=== PATIENT | female | born 1950 | race Caucasian/White ===

== ENCOUNTER 2020-11-04 12:10 | Outpatient (CLI) | payer MEDICARE, MEDICAID ==
[2020-11-04 14:29] LABS: BASOPHILS % (AUTO) 0.5 %; EOSINOPHILS # (AUTO) 0.2 10^3/uL (0.0-0.7); EOSINOPHILS % (AUTO) 3.3 %; HCT - HEMATOCRIT 42.6 % (37.0-47.0); HGB - HEMOGLOBIN 13.3 g/dL (12.0-16.0); LYMPHOCYTES # (AUTO) 2.1 10^3/uL (1.5-3.5); LYMPHOCYTES % (AUTO) 33.9 %; MEAN CORPUSCULAR HEMOGLOBIN 27.9 pg (27.0-31.0); MEAN CORPUSCULAR HGB CONC 31.2 g/dL (32.0-36.0); MEAN CORPUSCULAR VOLUME 89.5 fL (81.0-99.0); MEAN PLATELET VOLUME 10.1 fL (7.9-10.8); MONOCYTES # (AUTO) 0.5 10^3/uL (0.0-1.0); MONOCYTES % (AUTO) 7.4 %; NEUTROPHILS # (AUTO) 3.3 10^3/uL (1.5-6.6); NEUTROPHILS % (AUTO) 54.6 %; PLT - PLATELET COUNT 238 10^3/uL (130-450); RED BLOOD COUNT 4.76 10^6/uL (4.20-5.40); WHITE BLOOD COUNT 6.1 x10^3/uL (4.8-10.8)
[2020-11-04 14:51] LABS: ALBUMIN 4.1 g/dL (3.2-5.5); ALBUMIN/GLOBULIN RATIO 1.3 (1.0-2.2); BILIRUBIN,TOTAL 0.8 mg/dL (0.2-1.0); CREATININE 0.7 mg/dL (0.4-1.0); POTASSIUM 4.4 mmol/L (3.5-5.0); TOTAL PROTEIN 7.2 g/dL (6.7-8.2)
[2020-11-04 15:02] LABS: THYROID STIMULATING HORMONE 1.02 uIU/mL (0.34-5.60)
[2020-11-04 15:09] LABS: FERRITIN 136.3 ng/mL (11.0-306.8)
[2020-11-04 17:21] LABS: ESTIMATED AVERAGE GLUCOSE 183 mg/dL (70-100)
== END 2020-11-04 12:11 | disposition home or self-care (01) ==
LOC: LAB.S 12:10
DX: R53.83 Other fatigue (principal)
CPT/HCPCS: 36415; 80053; 82607; 82728; 83036; 84443; 85025

== ENCOUNTER 2020-11-28 11:02 | Outpatient (CLI) | payer MEDICARE, MEDICAID ==
--- NOTE | 2020-11-28 11:29 | SLEEP CARE CONSULTATION ---
Information from patient questionnaire entered by Ruthie Esparza. I have reviewed and concur with the information entered by Ruthie Esparza. This document represents the service I personally performed and the decisions made by me, Sobia Greenfield MD, [facility]. History of Present Illness Service Date and Time: 11/28/2020 1102 Reason for Visit: New patient, Previously diagnosed sleep apnea Chief Complaint: reports: Unrefreshed sleep, Excessive daytime sleepiness, Fatigue Date of Onset: 3-4 months Time it takes to fall asleep: 15-30 minutes Snores at night: No Observed to quit breathing while asleep: No Sleeps alone due to snoring: No Reasons for waking at night: reports: Pain, Bathroom Toss, Turn, or Twitch while sleeping: No Recalls having dreams: Yes Usually gets out of bed at: 8 am Feels refreshed in the morning: No Morning headache: No Sleepy or fatigued during the day: Yes Ever fallen asleep while driving: No Takes day naps: Yes Dreams during day naps: No Prior sleep studies: Yes Year and Where: [facility] in [place], [place] Additional HPI information: I have the pleasure of seeing Ms. Cruz today regarding obstructive sleep apnea. As you know, she is a 72 year old lady who was originally diagnosed at [facility] in 2014, the result of which is not available. She had a CPAP titration study in 2017 which recommended autoCPAP set between 7 and 12 cmH 2O. The patient said she got her current device at the time. However, she quit using her CPAP about 1.5 years ago because she needed to have an N-G tube placed. She also lost 150 lbs. She wore a nasal mask. [employer] was her durable medical supplier. - Parasomnia Symptoms Ever been unable to move upon waking from sleep: No Walks in sleep: No Talks in sleep: No Ever acted out dreams in sleep: No Ever felt weak in the knees when startled or emotional: No Bothered by creepy, crawly, restless sensations in legs: No Problems with memory or concentration: No Subjective Initial Bison Sleepiness Scale score: 13 (in 2020) Past Medical History Past Medical History: reports: Hypertension, Diabetes, Arthritis, GERD Social History The patient's occupation is a RETIRED. Patient is Single and lives in [place]. Have you smoked in the past 12 months: No Alcohol use: Yes Alcohol amount and frequency: 1 drink maybe twice a year Caffeine use: Yes Caffeine amount and frequency: 10 oz 1 day a week Family History Family history of sleep disordered breathing: Yes Family Hx Sleep Apnea: Father: Snoring, Sleep apnea - Treated, Sibling: Snoring, Sleep apnea - Treated Allergies and Home Medications Drug allergies reviewed: Yes Home medication list reviewed: Yes Review of Systems Weight loss over past 5 years: 150-200 Cardiovascular: reports: high blood pressure Respiratory: denies: shortness of breath, wheeze, sputum production, chronic cough, other Gastrointestinal: reports: difficulty swallowing Urinary: reports: incontinence, frequency, urgency Neurological: denies: headaches, seizure, head trauma, disorientation, speech dysfunction, gait or balance problems, fainting or unconsciousness, other Ear/Nose/Throat: reports: other (deaf) Endocrine: denies: thyroid disease, history of goiter, sluggishness, too hot or cold, excessive thirst, increased appetite, increased urination, unexplained weakness, other Musculoskeletal: reports: joint pain, back pain, joint swelling, mobility problems Immunologic: denies: sneezing, rash, itching, allergies to food or environment, other Physical Exam Vital signs obtained and entered by: To minimize the risk of COVID-19 exposure, detailed exam was not performed. Height: 5 ft 9 in Weight: 330 lb Body Mass Index: 48.7 BMI Classification: Morbidly Obese Impression and Plan IMPRESSION: 1. Obstructive Sleep Apnea-Hypopnea Syndrome, of unknown severity. The patient has not used her CPAP for 1.5 years. Her machine is in storage. She would like to start using it again. Therefore, in order to prescribe her more supplies, I will order a home sleep apnea test (HSAT) to confirm the diagnosis and reassess its severity. Plan: 1. Schedule a home sleep apnea test (HSAT). 2. Try to lose more weight 3. Return for follow up after the test. Counseling Topics: Weight control Follow up with Sleep Care in: 1-2 months Visit Type: In Office Time Spent with Patient (minutes): 15 Provider Statement: I spent 100% of the Face to Face Visit with the patient with greater than 50% spent counseling the patient and coordination of care.
== END 2020-11-28 11:03 | disposition home or self-care (01) ==
LOC: SC 11:02
PROVIDERS: ATTEND Internal Medicine Pulmonary Disease
DX: G47.33 Obstructive sleep apnea (adult) (pediatric) (principal); E66.01 Morbid (severe) obesity due to excess calories; Z68.42 Body mass index [BMI] 45.0-49.9, adult
CPT/HCPCS: 99202; G0463; 99212

== ENCOUNTER 2020-12-07 13:07 | Outpatient (CLI) | payer MEDICARE, MEDICAID | END 2020-12-07 13:08 | disposition home or self-care (01) | LOC: SC 13:07 | PROVIDERS: ATTEND Nurse Practitioner Family | DX: G47.33 Obstructive sleep apnea (adult) (pediatric) (principal); R09.02 Hypoxemia | CPT/HCPCS: G0399 ×2; 95806 ==

== ENCOUNTER 2020-12-26 15:18 | Outpatient (CLI) | payer MEDICARE, MEDICAID ==
[2020-12-26 22:16] VITALS: BP 134/76
--- NOTE | 2020-12-26 22:16 | SLEEP CARE CONSULTATION ---
Information from patient questionnaire entered by Brandie East. I have reviewed and concur with the information entered by Brandie East. This document represents the service I personally performed and the decisions made by me, Sobia Greenfield MD, [facility]. History of Present Illness Service Date and Time: 12/26/2020 1518 Initial Vantage Sleepiness Scale score: 13 (in 2020) Additional HPI information: HPI: Ms. Cruz returned for follow up of the home sleep apnea test (HSAT) she had on 12/07/2020. The polysomnography showed moderate obstructive sleep apnea- hypopnea. The AHI was 17.1, and mark oxygen saturation, 84%. The respiratory events occurred independently of body position. The patient was informed of these findings. I explained to her the pathophysiology behind obstructive sleep apnea. We then spent quite a bit of time discussing different treatment options. For mild obstructive sleep apnea, surgery and oral appliance are alternatives to nasal CPAP therapy but in moderate or severe cases, nasal CPAP is the most effective and reliable treatment. After some discussion, she opted try CPAP again. The patient used CPAP for a few years then quit a year ago when she required an NG tube [facility].. Sleep Study - Results Type of Sleep Study: Home sleep study Prior sleep studies: Yes Allergies and Home Medications Drug allergies reviewed: Yes Home medication list reviewed: Yes Review of Systems Review of systems same as previous: Yes Physical Exam Blood Pressure: 134/76 Cuff size: regular Heart Rate: 96 O2 Saturation: 95 Height: 5 ft 9 in Weight: 332 lb Body Mass Index: 49.0 BMI Classification: Morbidly Obese Impression and Plan IMPRESSION: 1. Obstructive Sleep Apnea-Hypopnea Syndrome, moderate, presently untreated. The patient brought her [employer] AirSense in and it is set at 5 10 cmH2O. She did not bring her mask. The device came from [employer]. PLAN: 1. Restart CPAP at the original setting of 5 10 cmH2O 2. Attempt to lose weight. 3. Prescription made for supplies and sent to [facility]. 4. Return for follow up after one month of using the CPAP again. Follow up with Sleep Care in: 1-2 months Follow up recommended for: Weight management Visit Type: In Office Time Spent with Patient (minutes): 15 Provider Statement: I spent 100% of the Face to Face Visit with the patient with greater than 50% spent counseling the patient and coordination of care.
== END 2020-12-26 15:19 | disposition home or self-care (01) ==
LOC: SC 15:18
PROVIDERS: ATTEND Internal Medicine Pulmonary Disease
DX: G47.33 Obstructive sleep apnea (adult) (pediatric) (principal); E66.01 Morbid (severe) obesity due to excess calories; Z68.42 Body mass index [BMI] 45.0-49.9, adult
CPT/HCPCS: 99212; G0463

== ENCOUNTER 2020-12-26 22:09 | Inpatient (IN) | payer MEDICAID, MEDICARE ==
--- NOTE | 2020-12-26 22:36 | ED Physician Documentation ---
PD HPI ABD PAIN - Stated complaint Stated Complaint: N/V/UNABLE TO HAVE BOWEL MVMT - Chief complaint Chief Complaint: Abd Pain - History obtained from History obtained from: Patient - History of Present Illness Timing - onset: Enter time (0), Today Timing - duration: Hours Timing - details: Gradual onset, Still present Pain level max: 10 Pain level now: 10 Quality: Cramping, Sharp, Fullness/distended, Pain Location: All over / everywhere Improved by: Laying still Worsened by: Eating, Moving, Position, Palpation Associated symptoms: Nausea, Vomiting (dry heaves). No: Fever, Diarrhea, Constipation, Dysuria Similar symptoms before: Diagnosis (SBO caught in ventral hernia) Recently seen: Not recently seen - Additional information Additional information: 70-year-old female with history of morbid obesity and ventral wall hernia has had a number of bowel obstructions previously these have been usually taken care of at [facility]. She has lost maybe 200 pounds and is still working on weight loss for potential surgery for her ventral hernia. Today at about 5 PM she began develop pain this persisted through the evening and it has become intolerable. She has had 5-6 admissions for this problem previously and she has had 5-6 times where she has not come to the hospital. She has done bowel rest at home and has resolved of her symptoms. Today she attempted that and pain became intolerable and she has now come to our emergency department. She states that she had a bowel movement today and she believes she may have passed some flatus even after 5:00. She states she has had an NG tube previously which has helped out a lot and she is asking for an NG tube. Review of Systems Constitutional: denies: Fever Eyes: denies: Decreased vision Ears: denies: Ear pain Nose: denies: Congestion Throat: denies: Sore throat Cardiac: denies: Chest pain / pressure, Palpitations Respiratory: denies: Dyspnea GI: reports: Abdominal Pain, Nausea, Vomiting. denies: Constipation, Diarrhea : denies: Dysuria, Frequency Skin: denies: Rash Musculoskeletal: denies: Neck pain, Back pain, Extremity pain Neurologic: denies: Generalized weakness, Focal weakness, Numbness PD PAST MEDICAL HISTORY - Past Medical History Cardiovascular: Hypertension Respiratory: Sleep apnea GI: GERD, Other (Ventral hernia, SBO) DIETITIAN CHIEF: Other (endometrial cancer) Musculoskeletal: Other (Arthritis) - Past Surgical History General: Colonoscopy HEENT: Tonsil/Adenoidectomy - Present Medications Home Medications: Ambulatory Orders Medication Instructions Recorded Confirmed Cholecalciferol [Vitamin D3] 1 cap PO DAILY 04/15/20 07/05/20 Docusate Sodium [Dok] 1 tab PO DAILY 04/15/20 07/05/20 Furosemide [Lasix] 1 - 2 tab PO DAILY 04/15/20 07/05/20 Losartan [Cozaar] 1 tab PO DAILY 04/15/20 07/05/20 Magnesium Carb,Citrate,Oxide 400 mg PO DAILY 04/15/20 07/05/20 [Magnesium Complex] Mirabegron [Myrbetriq] 1 tab PO DAILY 04/15/20 07/05/20 [place]-3/Dha/Epa/Fish Oil [[place] 3 2 cap PO DAILY 04/15/20 07/05/20 500 Softgel] Omeprazole Magnesium 1 tab PO BID 04/15/20 07/05/20 Oxycodone HCl [Roxicodone] 2 tab PO QPM 04/15/20 07/05/20 Potassium Chloride 1 tab PO DAILY 04/15/20 07/05/20 Topiramate [Topamax] 2 tab PO DAILY 04/15/20 07/05/20 metFORMIN [Glucophage] 1 tab PO BID 04/15/20 07/05/20 oxyCODONE ER [OxyCONTIN] 1 tab PO DAILY PRN MDD 3 04/15/20 07/05/20 - Allergies Allergies/Adverse Reactions: Allergies Allergy/AdvReac Type Severity Reaction Status Date / Time Penicillins Allergy Unknown Rash Verified 12/26/20 22:25 penicillin G Allergy Rash Verified 12/26/20 22:25 gabapentin AdvReac Mild Unknown Verified 12/26/20 22:25 PD ED PE NORMAL - Vitals Vital signs reviewed: Yes (hypertensive ) - General General: Alert and oriented X 3, No acute distress, Well developed/nourished - HEENT HEENT: Atraumatic, PERRL, EOMI - Neck Neck: Supple, no meningeal sign, No bony TTP - Cardiac Cardiac: RRR, No murmur - Respiratory Respiratory: No respiratory distress, Clear bilaterally - Abdomen Abdomen: Soft, Other (morbidly obese. Well healed midline scar. To the right of the scar is an area of about 3X4cm of healing tissue from an abscess earlier this year. general tender. + BS. no garding. ) - Back Back: No CVA TTP, No spinal TTP - Derm Derm: Normal color, Warm and dry, No rash - Extremities Extremities: No deformity, No edema Results - Vitals Vitals: Vital Signs - 24 hr 12/26/20 12/26/20 12/27/20 22:22 22:37 00:28 Temperature 36.4 C L 36.6 C 36.7 C Heart Rate 81 81 78 Respiratory 17 18 21 Rate Blood Pressure 187/61 H 180/75 H 208/87 H O2 Saturation 99 100 99 12/27/20 12/27/20 12/27/20 02:00 03:17 04:04 Temperature Heart Rate 80 77 80 Respiratory 18 17 18 Rate Blood Pressure 177/76 H 218/86 H 188/70 H O2 Saturation 97 98 98 12/27/20 12/27/20 12/27/20 04:05 04:20 04:57 Temperature Heart Rate 79 Respiratory 17 18 16 Rate Blood Pressure O2 Saturation 99 12/27/20 12/27/20 05:27 06:09 Temperature 37.2 C Heart Rate 81 Respiratory 16 20 Rate Blood Pressure 161/67 H O2 Saturation 99 Oxygen O2 Source Room air - Labs Labs: Laboratory Tests 12/26/20 12/26/20 12/26/20 22:56 23:12 23:12 WBC 10.4 RBC 5.43 H Hgb 15.3 Hct 47.1 H MCV 86.7 MCH 28.2 MCHC 32.5 RDW 13.8 Plt Count 194 MPV 10.6 Neut # (Auto) 8.1 H Lymph # (Auto) 1.5 [place] # (Auto) 0.7 Eos # (Auto) 0.1 Baso # (Auto) 0.0 Absolute Nucleated RBC 0.00 Nucleated RBC % 0.0 Sodium Potassium Chloride Carbon Dioxide Anion Gap BUN Creatinine Estimated GFR (MDRD) Glucose Lactic Acid 2.1 Calcium Total Bilirubin AST ALT Alkaline Phosphatase Total Protein Albumin Globulin Albumin/Globulin Ratio Lipase Urine Color YELLOW Urine Clarity SL. CLOUDY Urine pH 6.5 Ur Specific [place] 1.025 Urine Protein TRACE Urine Glucose (UA) 250 H Urine Ketones TRACE Urine Occult Blood TRACE-INTA Urine Nitrite POSITIVE H Urine Bilirubin NEGATIVE Urine Urobilinogen 0.2 (NORMAL) Ur Leukocyte Esterase NEGATIVE Urine RBC 0-5 Urine WBC 0-3 Ur Squamous Epith Cells FEW Squamous Urine Bacteria Many H Ur Microscopic Review INDICATED Urine Culture Comments INDICATED 12/26/20 23:47 WBC RBC Hgb Hct MCV MCH MCHC RDW Plt Count MPV Neut # (Auto) Lymph # (Auto) [place] # (Auto) Eos # (Auto) Baso # (Auto) Absolute Nucleated RBC Nucleated RBC % Sodium 138 Potassium 4.0 Chloride 95 L Carbon Dioxide 30 Anion Gap 13.0 BUN 29 H Creatinine 0.9 Estimated GFR (MDRD) 62 L Glucose 232 H Lactic Acid Calcium 10.1 Total Bilirubin 0.8 AST 26 ALT 30 Alkaline Phosphatase 91 Total Protein 7.9 Albumin 4.3 Globulin 3.6 Albumin/Globulin Ratio 1.2 Lipase 25 Urine Color Urine Clarity Urine pH Ur Specific [place] Urine Protein Urine Glucose (UA) Urine Ketones Urine Occult Blood Urine Nitrite Urine Bilirubin Urine Urobilinogen Ur Leukocyte Esterase Urine RBC Urine WBC Ur Squamous Epith Cells Urine Bacteria Ur Microscopic Review Urine Culture Comments - Rads (name of study) CT ab/pel with Radiology: Prelim report reviewed (Impression: Low to medium grade small bowel obstruction associated with a large ventral hernia which contains a long segment of mid to distal small bowel.), Discussed with rads (segment of small bowel out in the hernia is dilated the rest is decompressed. dilated small bowel within the abdomen. ), EMP read indepedently, See rad report PD MEDICAL DECISION MAKING - ED course Complexity details: reviewed results, re-evaluated patient, considered di fferential, d/w patient ED course: Morbidly obese 70-year-old female with a history of recurrent small bowel obstruction has a large ventral hernia associated with the small bowel obstruction. She does have evidence of obstruction on her CT scan today and there was a delay in reading her initial report but following the conversation with the radiologist I did attempt to reduce a portion of the hernia containing a dilated loop of bowel. With continued pressure I was able to reduce some segment of mass without relief of symptoms to the patient. She has been administered saline and intravenous Dilaudid and Zofran with some improvement in her pain. She has had prior obstructions requiring 4 to [address] Pichardo is consulted in the case and agrees that treatment for SBO here is appropriate and surgical intervention is not anticipated and if required transfer would be in order. Departure - Departure Disposition: [facility] DC/Xfer Clinical Impression: Small bowel obstruction
[2020-12-26] MEDS ORDERED: ONDANSETRON 4 MG/2 ML VIAL IVP STA (22:49)
[2020-12-26] MEDS ORDERED: HYDROmorphone 1 MG/ML CARPUJECT IVP STA (22:49)
[2020-12-26] MEDS ORDERED: IOVERSOL 320 100 ML VIAL IVP ONE (23:11)
[2020-12-26 23:26] LABS: BASOPHILS % (AUTO) 0.3 %; EOSINOPHILS # (AUTO) 0.1 10^3/uL (0.0-0.7); EOSINOPHILS % (AUTO) 0.8 %; HCT - HEMATOCRIT 47.1 % (37.0-47.0); HGB - HEMOGLOBIN 15.3 g/dL (12.0-16.0); LYMPHOCYTES # (AUTO) 1.5 10^3/uL (1.5-3.5); LYMPHOCYTES % (AUTO) 14.5 %; MEAN CORPUSCULAR HEMOGLOBIN 28.2 pg (27.0-31.0); MEAN CORPUSCULAR HGB CONC 32.5 g/dL (32.0-36.0); MEAN CORPUSCULAR VOLUME 86.7 fL (81.0-99.0); MEAN PLATELET VOLUME 10.6 fL (7.9-10.8); MONOCYTES # (AUTO) 0.7 10^3/uL (0.0-1.0); MONOCYTES % (AUTO) 6.4 %; NEUTROPHILS # (AUTO) 8.1 10^3/uL (1.5-6.6); NEUTROPHILS % (AUTO) 77.8 %; PLT - PLATELET COUNT 194 10^3/uL (130-450); RED BLOOD COUNT 5.43 10^6/uL (4.20-5.40); RED CELL DISTRIBUTION WIDTH 13.8 % (12.0-15.0); WHITE BLOOD COUNT 10.4 x10^3/uL (4.8-10.8)
[2020-12-26 23:29] LABS: BILIRUBIN,URINE NEGATIVE (NEGATIVE); GLUCOSE, URINE (UA) 250 mg/dL (NEGATIVE); KETONES,URINE (UA) TRACE mg/dL (NEGATIVE); LEUKOCYTE ESTERASE, URINE NEGATIVE (NEGATIVE); NITRITE,URINE POSITIVE (NEGATIVE); OCCULT BLOOD,URINE TRACE-INTA (NEGATIVE); PH,URINE 6.5 PH (5.0-7.5); PROTEIN,URINE TRACE mg/dL (NEGATIVE); UROBILINOGEN,URINE 0.2 (NORMAL) E.U./dL (NORMAL)
[2020-12-26 23:32] LABS: CLARITY,URINE SL. CLOUDY (CLEAR)
[2020-12-26 23:35] LABS: BACTERIA,URINE Many /HPF (None Seen); RBC,URINE 0-5 /HPF (0-5); SQUAMOUS EPITHELIAL CELL,UR FEW Squamous (<= Few); WBC,URINE 0-3 /HPF (0-5)
[2020-12-27 00:06] LABS: ALBUMIN 4.3 g/dL (3.2-5.5); ALBUMIN/GLOBULIN RATIO 1.2 (1.0-2.2); BILIRUBIN,TOTAL 0.8 mg/dL (0.2-1.0); CALCIUM 10.1 mg/dL (8.5-10.3); CREATININE 0.9 mg/dL (0.4-1.0); TOTAL PROTEIN 7.9 g/dL (6.7-8.2)
[2020-12-27] MEDS ORDERED: IOVERSOL 320 100 ML VIAL IVP ONE (00:58)
[2020-12-27] MEDS ORDERED: HYDROmorphone 1 MG/ML CARPUJECT IVP STA ×2 (01:14→05:46)
[2020-12-27] MEDS ORDERED: ONDANSETRON 4 MG/2 ML VIAL IVP STA (01:14)
[2020-12-27] MEDS ORDERED: SODIUM CHLORIDE 0.9% 1,000 ML IV STA ×2 (04:15→05:46)
[2020-12-27] MEDS ORDERED: PANTOPRAZOLE 40 MG VIAL IVP STA (05:49)
[2020-12-27] MEDS ORDERED: SODIUM CHLORIDE FLUSH 0.9% 10 ML SYRINGE IVP PRN (06:50)
--- NOTE | 2020-12-27 07:02 | HISTORY & PHYSICAL EXAMINATION ---
Chief Complaint - Chief Complaint Chief Complaint: abd pain, nausea History of Present Illness - [facility] - History Obtained From Records Reviewed: yes History obtained from: patient - History of Present Illness HPI Comment/Other: Patient is a 70-year-old morbidly obese female who presented to the ED with comp laint of abdominal pain which started around 5 PM yesterday 12/26/2020. She has significant ventral hernia and as a result has had multiple episodes of bowel obstruction. She sees a surgeon by name Joanne Sullivan at [facility]. There is plan for surgery in the future on the condition that she loses some weight. She is currently about 350 pounds and was up to 500 pounds in the past. At bedside she rates her pain 7 out of 10. She complains of nausea and dry heaves as well. She denies chest pain, difficulty in breathing, chills or fever. Work-up in the ED included a CT of the abdomen pelvis which showed the ventral hernia and low to medium grade bowel obstruction. She is being admitted for further treatment to include NG tube placement, pain management. History - Past Medical History Cardiovascular: reports: Hypertension Respiratory: reports: Sleep apnea GI: reports: GERD, Other (Ventral hernia, SBO) REHABILITATION AIDE/SCHEDULER: reports: Other (endometrial cancer) Musculoskeletal: reports: Osteoarthritis, Other (Arthritis) Other Past Medical History: Obesity, ventral hernia, Hx of uterine cancer, - Past Surgical History General: reports: Colonoscopy Ortho: reports: Shoulder arthroplasty (right) /REHABILITATION AIDE/SCHEDULER: reports: Hysterectomy HEENT: reports: Tonsil/Adenoidectomy Other past surgical history: mastoid surgery, ear surgery during childhood, 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 Mother had history of breast cancer, uterine cancer and alcohol abuse. Father had history of heart disease, diabetes mellitus, obesity and alcohol abuse. There is extensive history of hypertension in her family. Her grandparents have history of CVA and colon cancer. Social History Notes: She does not consume alcohol, tobacco products or recreational substances. She is independent of activities of daily living and gets around using a walker - POLST Patient has POLST: No POLST Status: Full Code Meds/Allgy - Home Medications Home Medications: Ambulatory Orders Medication Instructions Recorded Confirmed Cholecalciferol [Vitamin D3] 1 cap PO DAILY 04/15/20 12/27/20 Docusate Sodium [Dok] 1 tab PO DAILY 04/15/20 12/27/20 Furosemide [Lasix] 1 - 2 tab PO DAILY 04/15/20 12/27/20 Losartan [Cozaar] 1 tab PO DAILY 04/15/20 12/27/20 Magnesium Carb,Citrate,Oxide 400 mg PO DAILY 04/15/20 12/27/20 [Magnesium Complex] Mirabegron [Myrbetriq] 1 tab PO DAILY 04/15/20 12/27/20 [place]-3/Dha/Epa/Fish Oil [[place] 3 2 cap PO DAILY 04/15/20 12/27/20 500 Softgel] Omeprazole Magnesium 1 tab PO BID 04/15/20 12/27/20 Potassium Chloride 1 tab PO DAILY 04/15/20 12/27/20 Topiramate [Topamax] 2 tab PO DAILY 04/15/20 12/27/20 metFORMIN [Glucophage] 1 tab PO BID 04/15/20 12/27/20 oxyCODONE ER [OxyCONTIN] 1 tab PO DAILY PRN MDD 3 04/15/20 12/27/20 - Allergies Allergies/Adverse Reactions: Allergies Allergy/AdvReac Type Severity Reaction Status Date / Time Penicillins Allergy Unknown Rash Verified 12/26/20 22:25 penicillin G Allergy Rash Verified 12/26/20 22:25 gabapentin AdvReac Mild Unknown Verified 12/26/20 22:25 Review of Systems - Constitutional Constitutional: reports: Poor appetite. denies: Fatigue, Fever - Eyes Eyes: denies: Pain, Dipolpia - Ears, Nose & Throat Ears, Nose & Throat: reports: Hearing loss - Cardiovascular Cariovascular: denies: Chest pain, Edema, Lightheadedness, Syncope - Respiratory Respiratory: denies: Cough, Wheezing, Snoring, SOB at rest - Gastrointestinal Gastrointestinal: reports: Abdominal pain, Abdominal distention, Nausea, Reflux/heartburn. denies: Diarrhea - Genitourinary Genitourinary: denies: Dysuria, Frequency, Urgency, Hematuria, Incontinence - Musculoskeletal Musculoskeletal: reports: Joint pain (knees). denies: Muscle pain, Back pain, Muscle aches, Stiffness - Integumentary Integumentary: denies: Rash, Pruritis, Lesions, Dryness - Neurological Neurological: denies: Focal weakness, Headache - Psychiatric Psychiatric: denies: Depression, Anxiety - Endocrine Endocrine: denies: Polyuria, Polydypsia - Hematologic/Lymphatic Hematologic/Lymphatic: denies: Anemia, Bruising, Petechiae Prior Level of Functionality: She is independent of activities of daily living and gets around using a walker Exam - Vital Signs Vital Signs: Vital Signs x48h Temp Pulse Resp BP Pulse Ox 12/27/20 06:09 37.2 C 81 20 161/67 H 99 12/27/20 05:27 16 12/27/20 04:57 16 12/27/20 04:20 18 12/27/20 04:05 79 17 99 12/27/20 04:04 80 18 188/70 H 98 12/27/20 03:17 77 17 218/86 H 98 12/27/20 02:00 80 18 177/76 H 97 12/27/20 00:28 36.7 C 78 21 208/87 H 99 - Physical Exam General Appearance: positive: Alert, Moderate distress Eyes Bilateral: positive: PERRL ENT: positive: No signs of dehydration Neck: positive: No JVD, Trachea midline Respiratory: positive: Chest non-tender, No respiratory distress, Breath sounds nml. negative: Wheezes, Rales, Rhonchi Cardiovascular: positive: Regular rate & rhythm, No murmur Abdomen: positive: Tenderness, Abnml bowel sounds (diminished). negative: Guarding, Rebound Back: positive: Nml inspection Skin: positive: No rash, Warm, Dry Extremities: positive: Non-tender, Nml appearance, No pedal edema Neurologic/Psychiatric: positive: Oriented x3, Mood/affect nml Conclusion/Plan - Problem List (1) Small bowel obstruction Conclusion/Plan: Patient has had multiple episodes of bowel obstruction. She has a ventral hernia and needs to have surgery in the future. CT scan of the abdomen pelvis showed low to medium bowel obstruction with bowel and ventral hernia. Reduction was attempted by the ED physician She sees Dr. Joanne Sullivan a surgeon at [facility]. The requirement is for her to lose more weight before surgery can be done. NG tube is in place and connected to suction. Pain management with Dilaudid. IV hydration with normal saline. Protonix ordered. Zofran for nausea. Anticipating resolution. However if patient's symptoms worsen she would need transfer for higher level of care. (2) Ventral hernia Conclusion/Plan: She sees Dr. Joanne Sullivan a surgeon at [facility]. She will undergo surgery in the future once she has lost sufficient weight. She is to weigh 500 pounds and currently weighs 350 pounds. (3) Morbidly obese Conclusion/Plan: Patient working on losing weight. She used to weigh 500 pounds and is down to 350 pounds currently. (4) Diabetes mellitus Conclusion/Plan: Accu-Cheks before every meal and at bedtime. Sliding scale insulin. Qualifiers: Diabetes mellitus type: type 2 (5) Hypertension Conclusion/Plan: Hydralazine 10 mg IV every 6 hours as needed for systolic blood pressure greater than 160. (6) GERD (gastroesophageal reflux disease) Conclusion/Plan: Protonix 40 mg IV daily ordered. (7) NGHIA (obstructive sleep apnea) Conclusion/Plan: Patient is waiting for her CPAP to be delivered. - Lab Results Fish Bones: 12/26/20 23:12 12/26/20 23:47 Core Measures - Anticipated LOS I expect patient to be DC'd or transferred within 96 hours.: Yes - DVT/VTE - Prophylaxis VTE/DVT Device ordered at admit?: Yes VTE/DVT Prophylaxis med ordered at admit?: Yes
[2020-12-27 07:25] LABS: B. PARAPERTUSSIS- RESP PCR PAN NOT DETECTED; B. PERTUSSIS- RESP PCR PANEL NOT DETECTED; C. PNEUMONIAE- RESP PCR PANEL NOT DETECTED; CORONAVIRUS 229E-RESP PCR NOT DETECTED; CORONAVIRUS HKU1-RESP PCR NOT DETECTED; CORONAVIRUS NL63-RESP PCR NOT DETECTED; CORONAVIRUS OC43-RESP PCR NOT DETECTED; HUMAN METAPNEUMOVIRUS NOT DETECTED; INFLUENZA A- RESP PCR PANEL NOT DETECTED; INFLUENZA B - RESP PCR PANEL NOT DETECTED; M. PNEUMONIAE- RESP PCR PANEL NOT DETECTED; PARAINFLUENZA VIRUS 1 NOT DETECTED; PARAINFLUENZA VIRUS 2 NOT DETECTED; PARAINFLUENZA VIRUS 3 NOT DETECTED; PARAINFLUENZA VIRUS 4 NOT DETECTED; RHINOVIRUS/ENTEROVIRUS NOT DETECTED; RSV- RESP PCR PANEL NOT DETECTED; SARS-CoV-2 -RESP PCR PANEL NOT DETECTED
[2020-12-27] MEDS ORDERED: hydrALAZINE INJ 20 MG/ML VIAL IVP PRN (07:47)
--- NOTE | 2020-12-27 08:11 | CT Report ---
PROCEDURE: ABDOMEN/PELVIS W INDICATIONS: Abdominal pain and distention, concern for obstruction TECHNIQUE: After the administration of intravenous contrast, 5 mm thick sections acquired from the diaphragms to the symphysis. 5 mm thick coronal and sagittal reformats were acquired. For radiation dose reducti on, the following was used: automated exposure control, adjustment of mA and/or kV according to heydi ent size. COMPARISON: None. FINDINGS: There is a large ventral hernia containing a long segment of the mid and distal small bowel. There is dilatation of the bowel proximal to the segment containing within the hernia sac with an apparent tr ansition point near the fascial defect of the (for example series 5 image 61). Small bowel distal to the hernia is completely decompressed. The colon is relatively decompressed also. No free fluid or fr ee air. Unremarkable CT appearance of the liver, spleen, gallbladder, and adrenal glands. Mild fatty atrophy of the pancreas. No pancreatic ductal dilatation. Inflammatory changes. Mild relatively symmetric perinephric fat stranding. No hydroureteronephrosis o r urinary tract calculus identified. Nonaneurysmal abdominal aorta. No threshold enlarged intra-abdom inal or retroperitoneal lymph node. No free pelvic fluid or pelvic mass. Urinary bladder within wilder l limits. No tarsal tunnel or inguinal lymph nodes. Advanced degenerative changes of the sacroiliac j oints with air in the joint space and sclerosis adjacent to the joint. Advanced moderate degenerative changes in the lumbar spine. Included lung bases are clear. IMPRESSION: Low to moderate grade small bowel obstruction associated with a large ventral hernia con taining a long segment of the mid to distal small bowel. No significant change from preliminary repor t. Reviewed by: Mac Curiel MD on 12/27/2020 8:10 AM PDT Approved by: Mac Curiel MD on 12/27/2020 8:10 AM PDT Station ID: [id number]
[2020-12-27] MEDS: SODIUM CHLORIDE 0.9% 1,000 ML IV SCH ×3 (08:38→22:12)
[2020-12-27] MEDS: SODIUM CHLORIDE FLUSH 0.9% 10 ML SYRINGE IVP SCH ×2 (08:38→17:12)
[2020-12-27] MEDS: HEPARIN 5,000 UNIT/ML VIAL SUBQ SCH ×2 (08:39→20:35)
[2020-12-27] MEDS: INSULIN REGULAR HUMAN 300 UNIT/3 ML VIAL SUBQ SCH ×3 (11:13→23:49)
[2020-12-27] MEDS: ONDANSETRON 4 MG/2 ML VIAL IVP PRN (17:55)
[2020-12-27] MEDS: HYDROmorphone 0.5 MG/0.5 ML SYRINGE IVP PRN ×2 (17:56→23:32)
[2020-12-27] MEDS: PANTOPRAZOLE 40 MG VIAL IVP SCH (18:17)
--- NOTE | 2020-12-27 18:25 | XRAY Report ---
PROCEDURE: Chest for Line Placement INDICATIONS: NGT PLACEMENT TECHNIQUE: One view of the chest was acquired. COMPARISON: None FINDINGS: Surgical changes and devices: A gastric tube is present. The tip is now visible on these images, yet the tube is believed to proceed level of the diaphragm. Right shoulder arthroplasty hardware is seen. Lungs and pleura: No pleural effusions or pneumothorax. Lungs are clear. Mediastinum: Mediastinal contours appear normal. Heart size is normal. Bones and chest wall: No suspicious bony lesions. Age-appropriate degenerative changes are seen. O verlying soft tissues appear unremarkable. IMPRESSION: The tip of the gastric tube is not seen on these images, yet it is believed to be below the level of the diaphragm. Please consider short-term follow-up for further evaluation. Reviewed by: Pierce Ozuna MD on 12/27/2020 5:24 PM [place] Approved by: Pierce Ozuna MD on 12/27/2020 5:24 PM [place] Station ID: [id number]
--- NOTE | 2020-12-27 19:28 | XRAY Report ---
PROCEDURE: Abdomen 1 View X-Ray INDICATIONS: can't see NG TECHNIQUE: 1 view of the abdomen were acquired. COMPARISON: Chest x-ray 12/27/2020 FINDINGS: Surgical changes and devices: Nasogastric tube is at the gastroesophageal junction. Bowel: No pneumoperitoneum. The bowel gas pattern is normal. Soft tissues: No masses; visualized solid organ contours appear normal in size. No suspicious abdom inal calcifications. Bones: No suspicious bony abnormalities. IMPRESSION: Nasogastric tube is at the gastroesophageal junction. Forward advancement by at least 10 cm is recommended. Reviewed by: Michelle Sandoval MD on 12/27/2020 7:26 PM PDT Approved by: Michelle Sandoval MD on 12/27/2020 7:26 PM PDT Station ID: [id number]
--- NOTE | 2020-12-27 22:45 | XRAY Report ---
PROCEDURE: Abdomen 1 View X-Ray INDICATIONS: NG tube placement. TECHNIQUE: 1 view of the abdomen were acquired. COMPARISON: 12/27/2020 FINDINGS: Surgical changes and devices: Interval placement of a nasogastric tube. The tip is in the stomach, ho wever the side-port is likely within the distal esophagus. Recommend advancing the nasogastric tube 8 cm. Bowel: No pneumoperitoneum. The bowel gas pattern is normal. Bones: No suspicious bony abnormalities. IMPRESSION: Recommend advancing nasogastric tube 8 cm. Reviewed by: Marek Jeffries on 12/27/2020 10:44 PM PDT Approved by: Marek Jeffries on 12/27/2020 10:44 PM PDT Station ID: [id number]
--- NOTE | 2020-12-28 01:04 | XRAY Report ---
PROCEDURE: Abdomen 1 View X-Ray INDICATIONS: NG tube advancement. TECHNIQUE: 1 view of the abdomen were acquired. COMPARISON: 12/28/2019 FINDINGS: Surgical changes and devices: None. Bowel: No pneumoperitoneum. The bowel gas pattern is normal. Soft tissues: No masses; visualized solid organ contours appear normal in size. No suspicious abdom inal calcifications. Bones: No suspicious bony abnormalities. IMPRESSION: Nasogastric tube is well-positioned. Reviewed by: Marek Jeffries on 12/28/2020 1:02 AM PDT Approved by: Marek Jeffries on 12/28/2020 1:02 AM PDT Station ID: [id number]
[2020-12-28] MEDS: ACETAMINOPHEN 325 MG TABLET PO SCH ×4 (03:06→18:20)
[2020-12-28] MEDS: SODIUM CHLORIDE FLUSH 0.9% 10 ML SYRINGE IVP SCH ×3 (03:06→16:21)
[2020-12-28] MEDS: HYDROmorphone 0.5 MG/0.5 ML SYRINGE IVP PRN ×3 (03:14→20:59)
[2020-12-28 05:43] LABS: BASOPHILS % (AUTO) 0.4 %; EOSINOPHILS # (AUTO) 0.3 10^3/uL (0.0-0.7); EOSINOPHILS % (AUTO) 3.3 %; HCT - HEMATOCRIT 41.4 % (37.0-47.0); HGB - HEMOGLOBIN 13.1 g/dL (12.0-16.0); LYMPHOCYTES # (AUTO) 2.8 10^3/uL (1.5-3.5); LYMPHOCYTES % (AUTO) 36.2 %; MEAN CORPUSCULAR HEMOGLOBIN 28.2 pg (27.0-31.0); MEAN CORPUSCULAR HGB CONC 31.6 g/dL (32.0-36.0); MEAN CORPUSCULAR VOLUME 89.2 fL (81.0-99.0); MEAN PLATELET VOLUME 10.9 fL (7.9-10.8); MONOCYTES # (AUTO) 0.8 10^3/uL (0.0-1.0); MONOCYTES % (AUTO) 10.2 %; NEUTROPHILS # (AUTO) 3.8 10^3/uL (1.5-6.6); NEUTROPHILS % (AUTO) 49.8 %; PLT - PLATELET COUNT 164 10^3/uL (130-450); RED BLOOD COUNT 4.64 10^6/uL (4.20-5.40); RED CELL DISTRIBUTION WIDTH 14.1 % (12.0-15.0); WHITE BLOOD COUNT 7.7 x10^3/uL (4.8-10.8)
[2020-12-28 05:49] LABS: CALCIUM 8.7 mg/dL (8.5-10.3); CREATININE 0.7 mg/dL (0.4-1.0); POTASSIUM 3.8 mmol/L (3.5-5.0)
[2020-12-28] MEDS: INSULIN REGULAR HUMAN 300 UNIT/3 ML VIAL SUBQ SCH ×3 (06:22→18:20)
[2020-12-28] MEDS: PANTOPRAZOLE 40 MG VIAL IVP SCH ×2 (06:23→14:16)
[2020-12-28] MEDS ORDERED: PANTOPRAZOLE 40 MG VIAL IVP SCH (07:00)
[2020-12-28] MEDS: HEPARIN 5,000 UNIT/ML VIAL SUBQ SCH ×2 (08:15→21:05)
--- NOTE | 2020-12-28 10:36 | PROVIDER PROGRESS NOTE ---
Subjective - Prog Note Date Prog Note Date: 12/28/20 Prog Note Time: 10:35 - Subjective Pt reports feeling: Improved Subjective: Patient awake, alert, and sitting in recliner chair upon entering the room. She was able to sleep overnight. She mentions her abdominal pain has resolved and she is passing gas. Additionally, she feels that the "mass" that on her abdomen has resolved. She is currently not nauseas. She does have some diffuse pain and aches, but does not feel are related to her current condition. She wants to get a repeat CT scan because she feels that the condition is resolving. She also is hesitant about a PIC line unless it is just to receive fluid. At this time she has no additional. Current Medications - Current Medications Current Medications: Active Medications Acetaminophen (Acetaminophen 325 Mg Tablet) 650 mg PO Q6HR [facility] Last Admin: 12/28/20 06:14 Dose: Not Given Documented by: Heparin Sodium (Porcine) (Heparin 5,000 Unit/Ml Vial) 5,000 unit SUBQ BID [facility] Last Admin: 12/28/20 08:15 Dose: 5,000 unit Documented by: Hydralazine HCl (Hydralazine Inj 20 Mg/Ml Vial) 10 mg IVP Q6H PRN PRN Reason: PER PHYSICIAN ORDER Hydromorphone HCl (Hydromorphone 0.5 Mg/0.5 Ml Syringe) 1 mg IVP Q3H PRN PRN Reason: Pain 8 to 10 Last Admin: 12/28/20 03:14 Dose: 1 mg Documented by: Sodium Chloride (Normal Saline 0.9%) 1,000 mls @ 125 mls/hr IV .Q8H [facility] Last Infusion: 12/28/20 05:24 Dose: 0 mls/hr Documented by: Insulin Human Regular (Insulin Regular Human 300 Unit/3 Ml Vial) 1 - 5 unit SUBQ Q6HR [facility]; Protocol Last Admin: 12/28/20 06:22 Dose: Not Given Documented by: Ondansetron HCl (Ondansetron 4 Mg/2 Ml Vial) 4 mg IVP Q6HR PRN PRN Reason: Nausea / Vomiting Last Admin: 12/27/20 17:55 Dose: 4 mg Documented by: Pantoprazole Sodium (Pantoprazole 40 Mg Vial) 40 mg IVP QDAC [facility] Last Admin: 12/28/20 06:23 Dose: Not Given Documented by: Promethazine HCl (Promethazine 25 Mg/1 Ml Vial) 25 mg IM Q6HR PRN PRN Reason: Nausea / Vomiting Sodium Chloride (Sodium Chloride Flush 0.9% 10 Ml Syringe) 10 ml IVP PRN PRN PRN Reason: NEEDED PER PROVIDER ORDERS Sodium Chloride (Sodium Chloride Flush 0.9% 10 Ml Syringe) 10 ml IVP 0100,0900,1700 RICK Last Admin: 12/28/20 08:17 Dose: Not Given Documented by: Furosemide [Lasix] 1 - 2 tab PO DAILY 04/15/20 Losartan [Cozaar] 50 mg PO DAILY 04/15/20 Magnesium Carb,Citrate,Oxide [Magnesium Complex] 400 mg PO DAILY 04/15/20 Mirabegron [Myrbetriq] 50 mg PO DAILY 04/15/20 [place]-3/Dha/Epa/Fish Oil [[place] 3 500 Softgel] 2 cap PO DAILY 04/15/20 Omeprazole Magnesium 1 tab PO BID 04/15/20 Potassium Chloride 1 tab PO DAILY 04/15/20 metFORMIN [Glucophage] 1,000 mg PO BID 04/15/20 Cholecalciferol [Vitamin D3] 25 mcg PO DAILY 12/27/20 Duloxetine HCl [Cymbalta] 60 mg PO DAILY 12/27/20 Lactobacillus Acidophilus [Acidophilus Lactobacilli] 1 cap PO DAILY 12/27/20 Melatonin 10 mg PO QPM 12/27/20 Multivitamin 1 tab PO DAILY 12/27/20 Oxycodone HCl 10 - 30 mg PO BID PRN 12/27/20 Ubidecarenone [Co Q-10] 1 cap PO DAILY 12/27/20 Vitamin A 1 cap PO DAILY 12/27/20 Vitamin B Complex 1 tab PO DAILY 12/27/20 Objective - Vital Signs/Intake & Output Vital Signs: Vital Signs x48h Temp Pulse Pulse Resp BP Pulse Ox 12/28/20 07:37 36.9 C 70 16 138/54 H 96 12/28/20 05:20 36.5 C 77 16 126/70 96 Intake & Output: Intake & Output 12/25/20 12/26/20 12/27/20 12/28/20 23:59 23:59 23:59 23:59 Intake Total 2380.000 900 Output Total 100 150 Balance 2280.000 750 - Objective General Appearance: positive: No acute distress, Alert, Other (Moribdly obese) Eyes Bilateral: positive: PERRL, EOMI Neck: positive: No JVD, Trachea midline. negative: Lymphadenopathy (R), Lymphadenopathy (L) Respiratory: positive: Chest non-tender, No respiratory distress, Breath sounds nml. negative: Wheezes, Rales, Rhonchi Cardiovascular: positive: Regular rate & rhythm, No murmur, No gallop Peripheral Pulses: 1+ Dorsalis pedis (R), 1+ Dorsalis pedis (L), 2+ Radial (R), 2+ Radial (L) Abdomen: positive: Tenderness (Tenderness upper right primarily. But minor tenderness.), Abnml bowel sounds (slightly hypoactive, but still present.). negative: Guarding, Rebound Skin: positive: Warm, Dry Extremities: positive: Nml appearance, No pedal edema. negative: Calf tendernes s Neurologic/Psychiatric: positive: Oriented x3, CN's nml (2-12), Motor nml, Sensation nml, Mood/affect nml - Lab Results Fish Bones: 12/28/20 05:13 12/28/20 05:13 Other Labs: Lab Results x24hrs 12/28/20 12/28/20 12/28/20 Range/Units 06:15 05:13 05:13 WBC 7.7 (4.8-10.8) x10^3/uL RBC 4.64 (4.20-5.40) 10^6/uL Hgb 13.1 (12.0-16.0) g/dL Hct 41.4 (37.0-47.0) % MCV 89.2 (81.0-99.0) fL MCH 28.2 (27.0-31.0) pg MCHC 31.6 L (32.0-36.0) g/dL RDW 14.1 (12.0-15.0) % Plt Count 164 (130-450) 10^3/uL MPV 10.9 H (7.9-10.8) fL Neut # (Auto) 3.8 (1.5-6.6) 10^3/uL Lymph # (Auto) 2.8 (1.5-3.5) 10^3/uL [place] # (Auto) 0.8 (0.0-1.0) 10^3/uL Eos # (Auto) 0.3 (0.0-0.7) 10^3/uL Baso # (Auto) 0.0 (0.0-0.1) 10^3/uL Absolute Nucleated RBC 0.00 x10^3/uL Nucleated RBC % 0.0 /100WBC Sodium 140 (135-145) mmol/L Potassium 3.8 (3.5-5.0) mmol/L Chloride 104 (101-111) mmol/L Carbon Dioxide 24 (21-32) mmol/L Anion Gap 12.0 (6-13) BUN 20 (6-20) mg/dL Creatinine 0.7 (0.4-1.0) mg/dL Estimated GFR (MDRD) 83 L (>89) Glucose 151 H (70-100) mg/dL POC Whole Bld Glucose 136 H (70 - 100) mg/dL Calcium 8.7 (8.5-10.3) mg/dL 12/27/20 12/27/20 12/27/20 Range/Units 23:42 16:48 11:08 WBC (4.8-10.8) x10^3/uL RBC (4.20-5.40) 10^6/uL Hgb (12.0-16.0) g/dL Hct (37.0-47.0) % MCV (81.0-99.0) fL MCH (27.0-31.0) pg MCHC (32.0-36.0) g/dL RDW (12.0-15.0) % Plt Count (130-450) 10^3/uL MPV (7.9-10.8) fL Neut # (Auto) (1.5-6.6) 10^3/uL Lymph # (Auto) (1.5-3.5) 10^3/uL [place] # (Auto) (0.0-1.0) 10^3/uL Eos # (Auto) (0.0-0.7) 10^3/uL Baso # (Auto) (0.0-0.1) 10^3/uL Absolute Nucleated RBC x10^3/uL Nucleated RBC % /100WBC Sodium (135-145) mmol/L Potassium (3.5-5.0) mmol/L Chloride (101-111) mmol/L Carbon Dioxide (21-32) mmol/L Anion Gap (6-13) BUN (6-20) mg/dL Creatinine (0.4-1.0) mg/dL Estimated GFR (MDRD) (>89) Glucose (70-100) mg/dL POC Whole Bld Glucose 101 H 136 H 180 H (70 - 100) mg/dL Calcium (8.5-10.3) mg/dL ABX Reporting Has patient been on IV antibiotics over the past 48 hours?: No Assessment/Plan - Problem List (1) Small bowel obstruction Impression: (1) Small bowel obstruction Conclusion/Plan: Patient has had multiple episodes of bowel obstruction. She has a ventral hernia and needs to have surgery in the future. CT scan of the abdomen pelvis showed low to medium bowel obstruction with bowel and ventral hernia. Reduction was attempted by the ED physician She sees Dr. Joanne Sullivan a surgeon at [facility]. The requirement is for her to lose more weight before surgery can be done. NG tube is in place and connected to suction. Pain management with Dilaudid. IV hydration with normal saline. Protonix ordered. Zofran for nausea. Due to the patient feeling much better, passing gas, and resolution of pain ordering a follow up image is indicated to reasses. She wants to go home, but feels that she is still dehydrated and may want the PIC line for fluids. Given the fact that she is feeling better and that she is passing gas. I believe that it is reasonable to order a KUB and reassess. Hopefully the obstruction has resolved and she can be discharged later. Given that she does not currently have a PIC line, I will order some Sublingual Odansetron for her in the meantime. (2) Ventral hernia Conclusion/Plan: She sees Dr. Joanne Sullivan a surgeon at [facility]. She will undergo surgery in the future once she has lost sufficient weight. She is to weigh 500 pounds and currently weighs 350 pounds. No change. 12/28 (3) Morbidly obese Conclusion/Plan: Patient working on losing weight. She used to weigh 500 pounds and is down to 350 pounds currently. No change 12/28 (4) Diabetes mellitus Conclusion/Plan: Accu-Cheks before every meal and at bedtime. Sliding scale insulin. Qualifiers: Diabetes mellitus type: type 2 No change 12/28 (5) Hypertension Conclusion/Plan: Hydralazine 10 mg IV every 6 hours as needed for systolic blood pressure greater than 160. Stable. No change 12/28 (6) GERD (gastroesophageal reflux disease) Conclusion/Plan: Protonix 40 mg IV daily ordered. No change 12/28 (7) NGHIA (obstructive sleep apnea) Conclusion/Plan: Patient is waiting for her CPAP to be delivered. No change. 12/28
[2020-12-28] MEDS: SODIUM CHLORIDE 0.9% 1,000 ML IV SCH ×3 (12:07→21:08)
[2020-12-28] MEDS ORDERED: ONDANSETRON ODT 4 MG TABLET TL PRN (13:01)
--- NOTE | 2020-12-28 14:10 | ANESTHESIA PROCEDURE NOTE ---
Anesth Central Line Template - Central Line Central Line Preparation: Consent Obtained Central line location: Left Basilic Central line type: PICC Double Lumen Central line catheter tip site resides: Superior vena cava (SVC) Central line aftercare: Secured, Placement confirmed, No pneumothorax, No complications, Bundle checklist complete, Pt tolerated well
[2020-12-28] MEDS: ONDANSETRON 4 MG/2 ML VIAL IVP PRN ×2 (14:11→21:11)
--- NOTE | 2020-12-28 14:52 | XRAY Report ---
PROCEDURE: Chest for Line Placement INDICATIONS: For line placement TECHNIQUE: One view of the chest was acquired. COMPARISON: December 27, 2020 FINDINGS: SUPPORT DEVICES: Left approach PICC line with tip overlying the low SVC region. An enteric tube is noted but not well delineated distally. LUNG/PLEURA: No focal consolidation or pulmonary edema. No pleural effusion or space-occupying pneumo thorax. MEDIASTINUM: The cardiomediastinal silhouette is within normal limits. BONES/SOFT TISSUES: No acute abnormality. IMPRESSION: 1.No acute cardiopulmonary abnormality. Reviewed by: Sameer Venegas MD on 12/28/2020 2:51 PM PDT Approved by: Sameer Venegas MD on 12/28/2020 2:51 PM PDT Station ID: [id number]
[2020-12-29] MEDS: ACETAMINOPHEN 325 MG TABLET PO SCH ×2 (00:19→03:39)
[2020-12-29] MEDS: SODIUM CHLORIDE FLUSH 0.9% 10 ML SYRINGE IVP SCH ×3 (00:19→17:16)
[2020-12-29] MEDS: INSULIN REGULAR HUMAN 300 UNIT/3 ML VIAL SUBQ SCH ×4 (00:19→18:05)
[2020-12-29] MEDS: HYDROmorphone 0.5 MG/0.5 ML SYRINGE IVP PRN (00:23)
[2020-12-29] MEDS: CARBOXYMETHYLCELLULOSE OPHTH DROPS EACHEYE PRN ×2 (00:31→09:30)
[2020-12-29] MEDS: SODIUM CHLORIDE 0.9% 1,000 ML IV SCH ×3 (05:34→22:32)
[2020-12-29] MEDS: PANTOPRAZOLE 40 MG VIAL IVP SCH (05:35)
[2020-12-29 06:17] LABS: CALCIUM 8.8 mg/dL (8.5-10.3); CREATININE 0.8 mg/dL (0.4-1.0); POTASSIUM 3.7 mmol/L (3.5-5.0)
[2020-12-29 06:20] LABS: BASOPHILS % (AUTO) 0.4 %; EOSINOPHILS # (AUTO) 0.3 10^3/uL (0.0-0.7); EOSINOPHILS % (AUTO) 4.2 %; HCT - HEMATOCRIT 41.2 % (37.0-47.0); HGB - HEMOGLOBIN 13.1 g/dL (12.0-16.0); LYMPHOCYTES # (AUTO) 2.4 10^3/uL (1.5-3.5); LYMPHOCYTES % (AUTO) 33.8 %; MEAN CORPUSCULAR HEMOGLOBIN 28.5 pg (27.0-31.0); MEAN CORPUSCULAR HGB CONC 31.8 g/dL (32.0-36.0); MEAN CORPUSCULAR VOLUME 89.8 fL (81.0-99.0); MEAN PLATELET VOLUME 11.2 fL (7.9-10.8); MONOCYTES # (AUTO) 0.8 10^3/uL (0.0-1.0); MONOCYTES % (AUTO) 11.2 %; NEUTROPHILS # (AUTO) 3.6 10^3/uL (1.5-6.6); NEUTROPHILS % (AUTO) 49.8 %; PLT - PLATELET COUNT 127 10^3/uL (130-450); RED BLOOD COUNT 4.59 10^6/uL (4.20-5.40); RED CELL DISTRIBUTION WIDTH 13.8 % (12.0-15.0); WHITE BLOOD COUNT 7.1 x10^3/uL (4.8-10.8)
[2020-12-29] MEDS: ACETAMINOPHEN 1,000 MG/100 ML 100 ML IV PRN ×2 (07:55→17:18)
[2020-12-29] MEDS: ONDANSETRON 4 MG/2 ML VIAL IVP PRN (07:55)
--- NOTE | 2020-12-29 09:01 | PROVIDER PROGRESS NOTE ---
Subjective - Prog Note Date Prog Note Date: 12/29/20 Prog Note Time: 08:56 - Subjective Pt reports feeling: Worse (Worse than yesterday.) Subjective: Pt reports feeling pain worse than yesterday. She has not had any flatulence sin ce yesterday and no bowel movements. She mentioned that she was feeling overly optimistic about her condition yesterday. She continues to feel nauseas, but it says the odansetron is helping. Her NG tube is bothering her causing her nose and throat pain. The RN is aware and will continue NG tube care. Patient also wanted to know if she could switch from dilaudid to morphine due to the dilaudid giving her nightmares. She understands that this condition is going to take time to resolve. At this time she has no other additional needs and is resting in the bedside chair. Current Medications - Current Medications Current Medications: Active Medications Carboxymethylcellulose (Carboxymethylcellulose Ophth Drops) 1 drops EACHEYE PRN PRN PRN Reason: Dry Eye Last Admin: 12/29/20 00:31 Dose: 1 drops Documented by: Heparin Sodium (Porcine) (Heparin 5,000 Unit/Ml Vial) 5,000 unit SUBQ BID RICK Last Admin: 12/28/20 21:05 Dose: 5,000 unit Documented by: Hydralazine HCl (Hydralazine Inj 20 Mg/Ml Vial) 10 mg IVP Q6H PRN PRN Reason: PER PHYSICIAN ORDER Sodium Chloride (Normal Saline 0.9%) 1,000 mls @ 125 mls/hr IV .Q8H RICK Last Admin: 12/29/20 05:34 Dose: 125 mls/hr Documented by: Acetaminophen (Ofirmev) 100 mls @ 400 mls/hr IV Q6HR PRN PRN Reason: PAIN Last Admin: 12/29/20 07:55 Dose: 400 mls/hr Documented by: Insulin Human Regular (Insulin Regular Human 300 Unit/3 Ml Vial) 1 - 5 unit SUBQ Q6HR [facility]; Protocol Last Admin: 12/29/20 05:35 Dose: Not Given Documented by: Lidocaine HCl (Lidocaine Viscous 2% 100 Ml Bottle) 1 ml MM Q4H PRN PRN Reason: Nasal Congestion Morphine Sulfate (Morphine 2 Mg/Ml Carpuject) 2 mg IVP Q2HR PRN PRN Reason: PAIN Ondansetron HCl (Ondansetron 4 Mg/2 Ml Vial) 4 mg IVP Q6HR PRN PRN Reason: Nausea / Vomiting Last Admin: 12/29/20 07:55 Dose: 4 mg Documented by: Ondansetron HCl (Ondansetron Odt 4 Mg Tablet) 4 mg TL Q4HR PRN PRN Reason: Nausea / Vomiting Pantoprazole Sodium (Pantoprazole 40 Mg Vial) 40 mg IVP QDAC [facility] Last Admin: 12/29/20 05:35 Dose: 40 mg Documented by: Phenol/Menthol (Phenol Throat [place] 177 Ml) 2 sprays MM Q2HR PRN PRN Reason: Throat Pain Promethazine HCl (Promethazine 25 Mg/1 Ml Vial) 25 mg IM Q6HR PRN PRN Reason: Nausea / Vomiting Sodium Chloride (Sodium Chloride Flush 0.9% 10 Ml Syringe) 10 ml IVP PRN PRN PRN Reason: NEEDED PER PROVIDER ORDERS Sodium Chloride (Sodium Chloride Flush 0.9% 10 Ml Syringe) 10 ml IVP 0100,0900,1700 [facility] Last Admin: 12/29/20 00:19 Dose: Not Given Documented by: Furosemide [Lasix] 1 - 2 tab PO DAILY 04/15/20 Losartan [Cozaar] 50 mg PO DAILY 04/15/20 Magnesium Carb,Citrate,Oxide [Magnesium Complex] 400 mg PO DAILY 04/15/20 Mirabegron [Myrbetriq] 50 mg PO DAILY 04/15/20 [place]-3/Dha/Epa/Fish Oil [[place] 3 500 Softgel] 2 cap PO DAILY 04/15/20 Omeprazole Magnesium 1 tab PO BID 04/15/20 Potassium Chloride 1 tab PO DAILY 04/15/20 metFORMIN [Glucophage] 1,000 mg PO BID 04/15/20 Cholecalciferol [Vitamin D3] 25 mcg PO DAILY 12/27/20 Duloxetine HCl [Cymbalta] 60 mg PO DAILY 12/27/20 Lactobacillus Acidophilus [Acidophilus Lactobacilli] 1 cap PO DAILY 12/27/20 Melatonin 10 mg PO QPM 12/27/20 Multivitamin 1 tab PO DAILY 12/27/20 Oxycodone HCl 10 - 30 mg PO BID PRN 12/27/20 Ubidecarenone [Co Q-10] 1 cap PO DAILY 12/27/20 Vitamin A 1 cap PO DAILY 12/27/20 Vitamin B Complex 1 tab PO DAILY 12/27/20 Objective - Vital Signs/Intake & Output Vital Signs: Vital Signs x48h Temp Pulse Resp BP Pulse Ox 12/29/20 07:33 36.5 C 76 20 173/67 H 96 Vital Signs - 24 hr 12/28/20 12/28/20 12/28/20 12:51 16:57 20:56 Temperature 36.9 C 36.5 C 37.1 C Heart Rate [ 67 80 74 Brachial] Respiratory 16 18 20 Rate Blood Pressure 147/53 H [Left Brachial artery] Blood Pressure 164/57 H 158/59 H 168/59 H [Right Brachial artery] O2 Saturation 99 98 98 12/28/20 12/28/20 12/29/20 21:18 23:51 07:33 Temperature 36.7 C 36.5 C Heart Rate [ 72 69 76 Brachial] Respiratory 16 20 Rate Blood Pressure [Left Brachial artery] Blood Pressure 137/56 H 167/65 H 173/67 H [Right Brachial artery] O2 Saturation 96 96 Oxygen O2 Source Room air Intake & Output: Intake & Output 12/26/20 12/27/20 12/28/20 12/29/20 23:59 23:59 23:59 23:59 Intake Total 2380.000 1805 1030 Output Total 100 500 500 Balance 2280.000 1305 530 - Objective General Appearance: positive: Alert, Mild distress (Mild grimacing with movement.) Eyes Bilateral: positive: PERRL, EOMI Neck: positive: No JVD, Trachea midline Respiratory: positive: No respiratory distress, Breath sounds nml. negative: Wheezes, Rales, Rhonchi Cardiovascular: positive: Regular rate & rhythm. negative: No murmur, No gallop Peripheral Pulses: 1+ Radial (R), 1+ Radial (L), 1+ Dorsalis pedis (R), 1+ Dorsa lis pedis (L) Abdomen: positive: Tenderness (Some tenderness RUQ, but primarily LLQ), Abnml bowel sounds (hypoactive). negative: Guarding, Rebound Skin: positive: Warm, Dry Extremities: positive: Full ROM, Nml appearance, No pedal edema, Other (Dry skin and poor foot hygiene) Neurologic/Psychiatric: positive: Oriented x3, CN's nml (2-12), Motor nml, Sensation nml, Depressed mood/affect (Frustrated and down about her condition.) - Lab Results Fish Bones: 12/29/20 05:20 12/29/20 05:20 Other Labs: Lab Results x24hrs 12/29/20 12/29/20 12/29/20 Range/Units 05:27 05:24 05:20 WBC (4.8-10.8) x10^3/uL RBC (4.20-5.40) 10^6/uL Hgb (12.0-16.0) g/dL Hct (37.0-47.0) % MCV (81.0-99.0) fL MCH (27.0-31.0) pg MCHC (32.0-36.0) g/dL RDW (12.0-15.0) % Plt Count (130-450) 10^3/uL MPV (7.9-10.8) fL Neut # (Auto) (1.5-6.6) 10^3/uL Lymph # (Auto) (1.5-3.5) 10^3/uL [place] # (Auto) (0.0-1.0) 10^3/uL Eos # (Auto) (0.0-0.7) 10^3/uL Baso # (Auto) (0.0-0.1) 10^3/uL Absolute Nucleated RBC x10^3/uL Nucleated RBC % /100WBC Sodium 141 (135-145) mmol/L Potassium 3.7 (3.5-5.0) mmol/L Chloride 104 (101-111) mmol/L Carbon Dioxide 28 (21-32) mmol/L Anion Gap 9.0 (6-13) BUN 16 (6-20) mg/dL Creatinine 0.8 (0.4-1.0) mg/dL Estimated GFR (MDRD) 71 L (>89) Glucose 134 H (70-100) mg/dL POC Whole Bld Glucose 121 H 63 L (70 - 100) mg/dL Calcium 8.8 (8.5-10.3) mg/dL 12/29/20 12/29/20 12/28/20 Range/Units 05:20 00:07 20:50 WBC 7.1 (4.8-10.8) x10^3/uL RBC 4.59 (4.20-5.40) 10^6/uL Hgb 13.1 (12.0-16.0) g/dL Hct 41.2 (37.0-47.0) % MCV 89.8 (81.0-99.0) fL MCH 28.5 (27.0-31.0) pg MCHC 31.8 L (32.0-36.0) g/dL RDW 13.8 (12.0-15.0) % Plt Count 127 L (130-450) 10^3/uL MPV 11.2 H (7.9-10.8) fL Neut # (Auto) 3.6 (1.5-6.6) 10^3/uL Lymph # (Auto) 2.4 (1.5-3.5) 10^3/uL [place] # (Auto) 0.8 (0.0-1.0) 10^3/uL Eos # (Auto) 0.3 (0.0-0.7) 10^3/uL Baso # (Auto) 0.0 (0.0-0.1) 10^3/uL Absolute Nucleated RBC 0.00 x10^3/uL Nucleated RBC % 0.0 /100WBC Sodium (135-145) mmol/L Potassium (3.5-5.0) mmol/L Chloride (101-111) mmol/L Carbon Dioxide (21-32) mmol/L Anion Gap (6-13) BUN (6-20) mg/dL Creatinine (0.4-1.0) mg/dL Estimated GFR (MDRD) (>89) Glucose (70-100) mg/dL POC Whole Bld Glucose 107 H 108 H (70 - 100) mg/dL Calcium (8.5-10.3) mg/dL 12/28/20 12/28/20 Range/Units 18:12 11:24 WBC (4.8-10.8) x10^3/uL RBC (4.20-5.40) 10^6/uL Hgb (12.0-16.0) g/dL Hct (37.0-47.0) % MCV (81.0-99.0) fL MCH (27.0-31.0) pg MCHC (32.0-36.0) g/dL RDW (12.0-15.0) % Plt Count (130-450) 10^3/uL MPV (7.9-10.8) fL Neut # (Auto) (1.5-6.6) 10^3/uL Lymph # (Auto) (1.5-3.5) 10^3/uL [place] # (Auto) (0.0-1.0) 10^3/uL Eos # (Auto) (0.0-0.7) 10^3/uL Baso # (Auto) (0.0-0.1) 10^3/uL Absolute Nucleated RBC x10^3/uL Nucleated RBC % /100WBC Sodium (135-145) mmol/L Potassium (3.5-5.0) mmol/L Chloride (101-111) mmol/L Carbon Dioxide (21-32) mmol/L Anion Gap (6-13) BUN (6-20) mg/dL Creatinine (0.4-1.0) mg/dL Estimated GFR (MDRD) (>89) Glucose (70-100) mg/dL POC Whole Bld Glucose 89 137 H (70 - 100) mg/dL Calcium (8.5-10.3) mg/dL ABX Reporting Has patient been on IV antibiotics over the past 48 hours?: No Assessment/Plan - Problem List (1) Small bowel obstruction Impression: (1) Small bowel obstruction Conclusion/Plan: Patient has had multiple episodes of bowel obstruction. She has a ventral hernia and needs to have surgery in the future. CT scan of the abdomen pelvis showed low to medium bowel obstruction with bowel and ventral hernia. Reduction was attempted by the ED physician She sees Dr. Joanne Sullivan a surgeon at [facility]. The requirement is for her to lose more weight before surgery can be done. NG tube is in place and connected to suction. Pain management was switched from Dilaudid to morphine due to dilaudid causing nightmares for patient. IV hydration with normal saline. Protonix ordered. Zofran for nausea. PIC line established 12/28. Pain and nausea have increased today. She has no flatulence or bowel movements. The NG suction continues to produce copious amounts of material. Vital signs and labs stable. At this time there are no clinical signs of resolution of the bowel obstruction. There are no signs of ischemic bowel or other complications on physical exam or in lab values. Will continue conservative management with NG tube and Fluids. Will continue to monitor patient. (2) Ventral hernia Conclusion/Plan: She sees Dr. Joanne Sullivan a surgeon at [facility]. She will undergo surgery in the future once she has lost sufficient weight. She is to weigh 500 pounds and currently weighs 350 pounds. No change. 12/29 (3) Morbidly obese Conclusion/Plan: Patient working on losing weight. She used to weigh 500 pounds and is down to 350 pounds currently. No change 12/29 (4) Diabetes mellitus Conclusion/Plan: Accu-Cheks before every meal and at bedtime. Sliding scale insulin. Qualifiers: Diabetes mellitus type: type 2 No change 12/29 (5) Hypertension Conclusion/Plan: Hydralazine 10 mg IV every 6 hours as needed for systolic blood pressure greater than 160. Stable. No change 12/28 (6) GERD (gastroesophageal reflux disease) Conclusion/Plan: Protonix 40 mg IV daily ordered. No change 12/29 (7) NGHIA (obstructive sleep apnea) Conclusion/Plan: Patient is waiting for her CPAP to be delivered. No change. 12/29
[2020-12-29] MEDS ORDERED: LIDOCAINE VISCOUS 2% 15 ML UDC MM PRN (09:02)
[2020-12-29] MEDS: MORPHINE 2 MG/ML CARPUJECT IVP PRN ×2 (09:30→13:06)
[2020-12-29] MEDS: PHENOL THROAT SPRAY 177 ML MM PRN ×2 (09:30→11:49)
[2020-12-29] MEDS: HEPARIN 5,000 UNIT/ML VIAL SUBQ SCH ×2 (09:31→21:51)
[2020-12-29] MEDS: PROMETHAZINE 25 MG/1 ML VIAL IM PRN (13:12)
[2020-12-30] MEDS: MORPHINE 2 MG/ML CARPUJECT IVP PRN ×2 (00:25→04:57)
[2020-12-30] MEDS: PHENOL THROAT SPRAY 177 ML MM PRN ×2 (00:27→08:52)
[2020-12-30] MEDS: CARBOXYMETHYLCELLULOSE OPHTH DROPS EACHEYE PRN ×2 (00:27→11:11)
[2020-12-30] MEDS: ONDANSETRON 4 MG/2 ML VIAL IVP PRN (00:35)
[2020-12-30] MEDS: INSULIN REGULAR HUMAN 300 UNIT/3 ML VIAL SUBQ SCH ×4 (00:58→18:37)
[2020-12-30] MEDS: SODIUM CHLORIDE FLUSH 0.9% 10 ML SYRINGE IVP SCH ×3 (00:59→18:24)
[2020-12-30 05:57] LABS: BASOPHILS % (AUTO) 0.4 %; EOSINOPHILS # (AUTO) 0.3 10^3/uL (0.0-0.7); EOSINOPHILS % (AUTO) 4.6 %; HCT - HEMATOCRIT 39.4 % (37.0-47.0); HGB - HEMOGLOBIN 12.8 g/dL (12.0-16.0); LYMPHOCYTES # (AUTO) 2.2 10^3/uL (1.5-3.5); MEAN CORPUSCULAR HEMOGLOBIN 28.6 pg (27.0-31.0); MEAN CORPUSCULAR HGB CONC 32.5 g/dL (32.0-36.0); MEAN CORPUSCULAR VOLUME 88.1 fL (81.0-99.0); MEAN PLATELET VOLUME 9.8 fL (7.9-10.8); MONOCYTES # (AUTO) 0.7 10^3/uL (0.0-1.0); MONOCYTES % (AUTO) 10.1 %; NEUTROPHILS # (AUTO) 3.5 10^3/uL (1.5-6.6); NEUTROPHILS % (AUTO) 51.8 %; PLT - PLATELET COUNT 169 10^3/uL (130-450); RED BLOOD COUNT 4.47 10^6/uL (4.20-5.40); RED CELL DISTRIBUTION WIDTH 13.4 % (12.0-15.0); WHITE BLOOD COUNT 6.7 x10^3/uL (4.8-10.8)
[2020-12-30 06:05] LABS: CALCIUM 8.7 mg/dL (8.5-10.3); CREATININE 0.8 mg/dL (0.4-1.0); POTASSIUM 3.5 mmol/L (3.5-5.0)
[2020-12-30] MEDS: PANTOPRAZOLE 40 MG VIAL IVP SCH (06:29)
[2020-12-30] MEDS: SODIUM CHLORIDE 0.9% 1,000 ML IV SCH ×2 (06:29→15:07)
[2020-12-30] MEDS: ACETAMINOPHEN 1,000 MG/100 ML 100 ML IV PRN ×2 (08:56→21:03)
--- NOTE | 2020-12-30 09:03 | PROVIDER PROGRESS NOTE ---
Subjective - Prog Note Date Prog Note Date: 12/30/20 Prog Note Time: 08:58 - Subjective Pt reports feeling: No change (Still feeling miserable and same level of discomfort) Subjective: Pt was seen this morning. Has had no BM, flatulence, or change in her level of discomfort. She mentions she is miserable and exhausted. Pt desires a CT scan to assess status of her obstruction. She continues to receive fluids and treatment for her associated symptoms of nausea and pain. Her vitals are currently stable at this time and she does not have any additional needs at this time. Current Medications - Current Medications Current Medications: Active Medications Carboxymethylcellulose (Carboxymethylcellulose Ophth Drops) 1 drops EACHEYE PRN PRN PRN Reason: Dry Eye Last Admin: 12/30/20 00:27 Dose: 1 drops Documented by: Heparin Sodium (Porcine) (Heparin 5,000 Unit/Ml Vial) 5,000 unit SUBQ BID RICK Last Admin: 12/29/20 21:51 Dose: 5,000 unit Documented by: Hydralazine HCl (Hydralazine Inj 20 Mg/Ml Vial) 10 mg IVP Q6H PRN PRN Reason: PER PHYSICIAN ORDER Sodium Chloride (Normal Saline 0.9%) 1,000 mls @ 125 mls/hr IV .Q8H [facility] Last Infusion: 12/30/20 08:56 Dose: 0 mls/hr Documented by: Acetaminophen (Ofirmev) 100 mls @ 400 mls/hr IV Q6HR PRN PRN Reason: PAIN Last Admin: 12/30/20 08:56 Dose: 400 mls/hr Documented by: Insulin Human Regular (Insulin Regular Human 300 Unit/3 Ml Vial) 1 - 5 unit SUBQ Q6HR [facility]; Protocol Last Admin: 12/30/20 06:07 Dose: Not Given Documented by: Lidocaine HCl (Lidocaine Viscous 2% 15 Ml Udc) 1 ml MM Q4H PRN PRN Reason: Nasal Congestion Morphine Sulfate (Morphine 2 Mg/Ml Carpuject) 2 mg IVP Q2HR PRN PRN Reason: PAIN Last Admin: 12/30/20 04:57 Dose: 2 mg Documented by: Ondansetron HCl (Ondansetron 4 Mg/2 Ml Vial) 4 mg IVP Q6HR PRN PRN Reason: Nausea / Vomiting Last Admin: 12/30/20 00:35 Dose: 4 mg Documented by: Ondansetron HCl (Ondansetron Odt 4 Mg Tablet) 4 mg TL Q4HR PRN PRN Reason: Nausea / Vomiting Pantoprazole Sodium (Pantoprazole 40 Mg Vial) 40 mg IVP QDAC [facility] Last Admin: 12/30/20 06:29 Dose: 40 mg Documented by: Phenol/Menthol (Phenol Throat [place] 177 Ml) 2 sprays MM Q2HR PRN PRN Reason: Throat Pain Last Admin: 12/30/20 08:52 Dose: 2 sprays Documented by: Promethazine HCl (Promethazine 25 Mg/1 Ml Vial) 25 mg IM Q6HR PRN PRN Reason: Nausea / Vomiting Last Admin: 12/29/20 13:12 Dose: 25 mg Documented by: Sodium Chloride (Sodium Chloride Flush 0.9% 10 Ml Syringe) 10 ml IVP PRN PRN PRN Reason: NEEDED PER PROVIDER ORDERS Sodium Chloride (Sodium Chloride Flush 0.9% 10 Ml Syringe) 10 ml IVP 0100,0900,1700 [facility] Last Admin: 12/30/20 08:51 Dose: Not Given Documented by: Furosemide [Lasix] 1 - 2 tab PO DAILY 04/15/20 Losartan [Cozaar] 50 mg PO DAILY 04/15/20 Magnesium Carb,Citrate,Oxide [Magnesium Complex] 400 mg PO DAILY 04/15/20 Mirabegron [Myrbetriq] 50 mg PO DAILY 04/15/20 [place]-3/Dha/Epa/Fish Oil [[place] 3 500 Softgel] 2 cap PO DAILY 04/15/20 Omeprazole Magnesium 1 tab PO BID 04/15/20 Potassium Chloride 1 tab PO DAILY 04/15/20 metFORMIN [Glucophage] 1,000 mg PO BID 04/15/20 Cholecalciferol [Vitamin D3] 25 mcg PO DAILY 12/27/20 Duloxetine HCl [Cymbalta] 60 mg PO DAILY 12/27/20 Lactobacillus Acidophilus [Acidophilus Lactobacilli] 1 cap PO DAILY 12/27/20 Melatonin 10 mg PO QPM 12/27/20 Multivitamin 1 tab PO DAILY 12/27/20 Oxycodone HCl 10 - 30 mg PO BID PRN 12/27/20 Ubidecarenone [Co Q-10] 1 cap PO DAILY 12/27/20 Vitamin A 1 cap PO DAILY 12/27/20 Vitamin B Complex 1 tab PO DAILY 12/27/20 Objective - Vital Signs/Intake & Output Vital Signs: Vital Signs x48h Temp Pulse Resp BP Pulse Ox 12/30/20 07:45 36.7 C 64 16 171/63 H 97 Intake & Output: Intake & Output 12/27/20 12/28/20 12/29/20 12/30/20 23:59 23:59 23:59 23:59 Intake Total 2380.000 1805 3230.00 1300.00 Output Total 411 254 1572 1075 Balance 2280.000 1305 1530.00 225.00 - Objective General Appearance: positive: Mild distress, Other (Looks to be in pain and exhausted.) Eyes Bilateral: positive: PERRL, EOMI Neck: positive: No JVD, Trachea midline Respiratory: positive: No respiratory distress, Breath sounds nml Cardiovascular: positive: Regular rate & rhythm. negative: No murmur, No gallop Peripheral Pulses: 1+ Radial (R), 1+ Radial (L), 1+ Dorsalis pedis (R), 1+ Dorsalis pedis (L) Abdomen: positive: Tenderness (RUQ and LLQ primarily.), Guarding (RUQ guarding), Abnml bowel sounds (Hypoactive bowel sounds, but more active than yesterday (12/29)) Skin: positive: Warm, Dry Extremities: positive: Nml appearance, No pedal edema. negative: Calf tenderness Neurologic/Psychiatric: positive: Oriented x3, CN's nml (2-12), Motor nml, Sensation nml - Lab Results Fish Bones: 12/30/20 05:48 12/30/20 05:48 Other Labs: Lab Results x24hrs 12/30/20 12/30/20 12/30/20 Range/Units 05:48 05:48 00:02 WBC 6.7 (4.8-10.8) x10^3/uL RBC 4.47 (4.20-5.40) 10^6/uL Hgb 12.8 (12.0-16.0) g/dL Hct 39.4 (37.0-47.0) % MCV 88.1 (81.0-99.0) fL MCH 28.6 (27.0-31.0) pg MCHC 32.5 (32.0-36.0) g/dL RDW 13.4 (12.0-15.0) % Plt Count 169 (130-450) 10^3/uL MPV 9.8 (7.9-10.8) fL Neut # (Auto) 3.5 (1.5-6.6) 10^3/uL Lymph # (Auto) 2.2 (1.5-3.5) 10^3/uL [place] # (Auto) 0.7 (0.0-1.0) 10^3/uL Eos # (Auto) 0.3 (0.0-0.7) 10^3/uL Baso # (Auto) 0.0 (0.0-0.1) 10^3/uL Absolute Nucleated RBC 0.00 x10^3/uL Nucleated RBC % 0.0 /100WBC Sodium 139 (135-145) mmol/L Potassium 3.5 (3.5-5.0) mmol/L Chloride 102 (101-111) mmol/L Carbon Dioxide 27 (21-32) mmol/L Anion Gap 10.0 (6-13) BUN 12 (6-20) mg/dL Creatinine 0.8 (0.4-1.0) mg/dL Estimated GFR (MDRD) 71 L (>89) Glucose 104 H (70-100) mg/dL POC Whole Bld Glucose 85 (70 - 100) mg/dL Calcium 8.7 (8.5-10.3) mg/dL 12/29/20 12/29/20 Range/Units 18:02 10:57 WBC (4.8-10.8) x10^3/uL RBC (4.20-5.40) 10^6/uL Hgb (12.0-16.0) g/dL Hct (37.0-47.0) % MCV (81.0-99.0) fL MCH (27.0-31.0) pg MCHC (32.0-36.0) g/dL RDW (12.0-15.0) % Plt Count (130-450) 10^3/uL MPV (7.9-10.8) fL Neut # (Auto) (1.5-6.6) 10^3/uL Lymph # (Auto) (1.5-3.5) 10^3/uL [place] # (Auto) (0.0-1.0) 10^3/uL Eos # (Auto) (0.0-0.7) 10^3/uL Baso # (Auto) (0.0-0.1) 10^3/uL Absolute Nucleated RBC x10^3/uL Nucleated RBC % /100WBC Sodium (135-145) mmol/L Potassium (3.5-5.0) mmol/L Chloride (101-111) mmol/L Carbon Dioxide (21-32) mmol/L Anion Gap (6-13) BUN (6-20) mg/dL Creatinine (0.4-1.0) mg/dL Estimated GFR (MDRD) (>89) Glucose (70-100) mg/dL POC Whole Bld Glucose 92 116 H (70 - 100) mg/dL Calcium (8.5-10.3) mg/dL ABX Reporting Has patient been on IV antibiotics over the past 48 hours?: No Assessment/Plan - Problem List (1) Small bowel obstruction Impression: Conclusion/Plan: Patient has had multiple episodes of bowel obstruction. She has a ventral hernia and needs to have surgery in the future. CT scan of the abdomen pelvis showed low to medium bowel obstruction with bowel and ventral hernia. Reduction was attempted by the ED physician She sees Dr. Joanne Sullivan a surgeon at [facility]. The requirement is for her to lose more weight before surgery can be done. NG tube is in place and connected to suction. Pain management was switched from Dilaudid to morphine due to dilaudid causing nightmares for patient. She is satisfied with the change to morphine as of 12/30.IV hydration with normal saline. Protonix ordered. Zofran for nausea. PIC line established 12/28. Pain and nausea have increased today. She has no flatulence or bowel movements. The NG suction continues to produce copious amounts of material. Vital signs and labs stable. At this time there are no clinical signs of resolution of the bowel obstruction. There are no signs of ischemic bowel or other complications on physical exam or in lab values. At this time CT Scan is indicated to assess the status of the obstruction. This would also satisfy patients desire for this. Will continue conservative management with NG tube and Fluids. Will continue to monitor patient. (2) Ventral hernia Conclusion/Plan: She sees Dr. Joanne Sullivan a surgeon at [facility]. She will undergo surgery in the future once she has lost sufficient weight. She is to weigh 500 pounds and currently weighs 350 pounds. No change. 12/30 (3) Morbidly obese Conclusion/Plan: Patient working on losing weight. She used to weigh 500 pounds and is down to 350 pounds currently. No change 12/30 (4) Diabetes mellitus Conclusion/Plan: Accu-Cheks before every meal and at bedtime. Sliding scale insulin. Qualifiers: Diabetes mellitus type: type 2 No change 12/30 (5) Hypertension Conclusion/Plan: Hydralazine 10 mg IV every 6 hours as needed for systolic blood pressure greater than 160. Stable. No change 12/30 (6) GERD (gastroesophageal reflux disease) Conclusion/Plan: Protonix 40 mg IV daily ordered. No change 12/30 (7) NGHIA (obstructive sleep apnea) Conclusion/Plan: Patient is waiting for her CPAP to be delivered. No change. 12/30
[2020-12-30] MEDS: HEPARIN 5,000 UNIT/ML VIAL SUBQ SCH ×2 (09:16→20:55)
[2020-12-30] MEDS ORDERED: IOVERSOL 320 50 ML VIAL ONE (15:08)
[2020-12-30] MEDS ORDERED: IOVERSOL 320 50 ML VIAL PO ONE (18:27)
[2020-12-30] MEDS: PROMETHAZINE 25 MG/1 ML VIAL IM PRN (21:04)
[2020-12-31] MEDS: SODIUM CHLORIDE 0.9% 1,000 ML IV SCH ×3 (00:15→16:52)
[2020-12-31] MEDS ORDERED: CALCIUM CARBONATE CHEW 500 MG TABLET PO PRN (00:20)
[2020-12-31] MEDS: INSULIN REGULAR HUMAN 300 UNIT/3 ML VIAL SUBQ SCH ×4 (00:49→17:52)
[2020-12-31] MEDS: SODIUM CHLORIDE FLUSH 0.9% 10 ML SYRINGE IVP SCH ×4 (00:50→23:48)
[2020-12-31] MEDS: ACETAMINOPHEN 1,000 MG/100 ML 100 ML IV PRN (03:17)
[2020-12-31] MEDS: MORPHINE 2 MG/ML CARPUJECT IVP PRN ×2 (03:49→05:53)
[2020-12-31] MEDS: PANTOPRAZOLE 40 MG VIAL IVP SCH (05:53)
[2020-12-31 06:23] LABS: BASOPHILS % (AUTO) 0.4 %; EOSINOPHILS # (AUTO) 0.3 10^3/uL (0.0-0.7); EOSINOPHILS % (AUTO) 4.6 %; HCT - HEMATOCRIT 38.4 % (37.0-47.0); HGB - HEMOGLOBIN 12.5 g/dL (12.0-16.0); LYMPHOCYTES # (AUTO) 2.3 10^3/uL (1.5-3.5); LYMPHOCYTES % (AUTO) 34.1 %; MEAN CORPUSCULAR HEMOGLOBIN 28.5 pg (27.0-31.0); MEAN CORPUSCULAR HGB CONC 32.6 g/dL (32.0-36.0); MEAN CORPUSCULAR VOLUME 87.7 fL (81.0-99.0); MONOCYTES # (AUTO) 0.7 10^3/uL (0.0-1.0); MONOCYTES % (AUTO) 9.6 %; NEUTROPHILS # (AUTO) 3.4 10^3/uL (1.5-6.6); NEUTROPHILS % (AUTO) 51.2 %; PLT - PLATELET COUNT 175 10^3/uL (130-450); RED BLOOD COUNT 4.38 10^6/uL (4.20-5.40); RED CELL DISTRIBUTION WIDTH 13.4 % (12.0-15.0); WHITE BLOOD COUNT 6.7 x10^3/uL (4.8-10.8)
[2020-12-31 06:32] LABS: CALCIUM 8.7 mg/dL (8.5-10.3); CREATININE 0.7 mg/dL (0.4-1.0); POTASSIUM 3.4 mmol/L (3.5-5.0)
--- NOTE | 2020-12-31 08:22 | CT Report ---
PROCEDURE: Abdomen/Pelvis WO INDICATIONS: fu of sbo TECHNIQUE: After the administration of oral contrast 5 mm thick sections acquired from the diaphragms to the sym physis. 5 mm coronal and sagittal reformats were then performed. For radiation dose reduction, the following was used: automated exposure control, adjustment of mA and/or kV according to patient size . COMPARISON: 12/27/2020 CT FINDINGS: Image quality: Limited examination given body habitus and artifact. ABDOMEN: Lung bases: Nodular groundglass opacity within the right middle lobe measuring 1.7 x 2.5 cm. Mild isidro gular atelectasis. Heart size is normal. Enteric tube is noted extending into the stomach. Solid organs: Liver and spleen are normal in size. Gallbladder is unremarkable Pancreas demonstrat es fatty atrophy, otherwise unremarkable. No adrenal nodules. Kidneys are normal in size, without hy dronephrosis or nephrolithiasis. Mild perinephric inflammation, likely within normal limits for patie nt's age. Peritoneum and bowel: Large ventral hernia containing a long segment of the mid and distal small po l is again identified within the right mid to lower abdomen. The previously noted dilated loops of sm all bowel are resolved from prior examination. Oral contrast is noted extending through the small bow el into the large bowel to the level of the sigmoid colon. Questionable wall thickening of the cecum likely due to nondistended sections are not definitely identified on comparison. Nodes and vessels: No retroperitoneal or mesenteric adenopathy by size criteria. Aorta and inferior vena cava are normal in caliber. Miscellaneous: Large ventral hernia as above. There is mild soft tissue inflammation noted surroundin g the hernia sac. PELVIS: Genitourinary: Bladder wall thickness is normal. Miscellaneous: No inguinal hernias or adenopathy. Bones: No suspicious bony lesions. Advanced degenerative changes of the lumbar spine without evidenc e of an acute osseous abnormality within the limitations of this examination. Degenerative changes of the hips are noted. Advanced degenerative changes of the sacroiliac joints are normal. IMPRESSION: Interval improvement of previously noted small bowel obstruction without dilation of small bowel. Lar ge ventral hernia containing multiple loops of small bowel remains. Additional findings as above. Reviewed by: Bogdan Soliz DO on 12/31/2020 7:20 AM [place] Approved by: Bogdan Soliz DO on 12/31/2020 7:20 AM [place] Station ID: [id number]
[2020-12-31] MEDS: HEPARIN 5,000 UNIT/ML VIAL SUBQ SCH ×2 (08:32→20:59)
[2020-12-31] MEDS: POTASSIUM CHLOR 10 MEQ/100 ML 10 MEQ/100 ML BAG IV SCH ×3 (08:34→11:11)
--- NOTE | 2020-12-31 14:44 | PROVIDER PROGRESS NOTE ---
Subjective - Prog Note Date Prog Note Date: 12/31/20 Prog Note Time: 14:44 - Subjective Pt reports feeling: Improved Subjective: She had a large, large bowel movement yesterday. Excellent resolution of abdominal distention, pain, nausea.CT of the abdomen shows obstruction has resolved. Current Medications - Current Medications Current Medications: Active Medications Calcium Carbonate/Glycine (Calcium Carbonate Chew 500 Mg Tablet) 500 mg PO BID PRN PRN Reason: Heartburn Carboxymethylcellulose (Carboxymethylcellulose Ophth Drops) 1 drops EACHEYE PRN PRN PRN Reason: Dry Eye Last Admin: 12/30/20 11:11 Dose: 1 drops Documented by: Heparin Sodium (Porcine) (Heparin 5,000 Unit/Ml Vial) 5,000 unit SUBQ BID RICK Last Admin: 12/31/20 08:32 Dose: 5,000 unit Documented by: Hydralazine HCl (Hydralazine Inj 20 Mg/Ml Vial) 10 mg IVP Q6H PRN PRN Reason: PER PHYSICIAN ORDER Sodium Chloride (Normal Saline 0.9%) 1,000 mls @ 125 mls/hr IV .Q8H [facility] Last Admin: 12/31/20 08:34 Dose: 125 mls/hr Documented by: Acetaminophen (Ofirmev) 100 mls @ 400 mls/hr IV Q6HR PRN PRN Reason: PAIN Last Infusion: 12/31/20 03:49 Dose: Infused Documented by: Insulin Human Regular (Insulin Regular Human 300 Unit/3 Ml Vial) 1 - 5 unit SUBQ Q6HR [facility]; Protocol Last Admin: 12/31/20 11:09 Dose: Not Given Documented by: Lidocaine HCl (Lidocaine Viscous 2% 15 Ml Udc) 1 ml MM Q4H PRN PRN Reason: Nasal Congestion Morphine Sulfate (Morphine 2 Mg/Ml Carpuject) 2 mg IVP Q2HR PRN PRN Reason: PAIN Last Admin: 12/31/20 05:53 Dose: 2 mg Documented by: Ondansetron HCl (Ondansetron 4 Mg/2 Ml Vial) 4 mg IVP Q6HR PRN PRN Reason: Nausea / Vomiting Last Admin: 12/30/20 00:35 Dose: 4 mg Documented by: Ondansetron HCl (Ondansetron Odt 4 Mg Tablet) 4 mg TL Q4HR PRN PRN Reason: Nausea / Vomiting Pantoprazole Sodium (Pantoprazole 40 Mg Vial) 40 mg IVP QDAC [facility] Last Admin: 12/31/20 05:53 Dose: 40 mg Documented by: Phenol/Menthol (Phenol Throat Schriever 177 Ml) 2 sprays MM Q2HR PRN PRN Reason: Throat Pain Last Admin: 12/30/20 08:52 Dose: 2 sprays Documented by: Promethazine HCl (Promethazine 25 Mg/1 Ml Vial) 25 mg IM Q6HR PRN PRN Reason: Nausea / Vomiting Last Admin: 12/30/20 21:04 Dose: 25 mg Documented by: Sodium Chloride (Sodium Chloride Flush 0.9% 10 Ml Syringe) 10 ml IVP PRN PRN PRN Reason: NEEDED PER PROVIDER ORDERS Sodium Chloride (Sodium Chloride Flush 0.9% 10 Ml Syringe) 10 ml IVP 0100,0900 ,1700 [facility] Last Admin: 12/31/20 08:43 Dose: 10 ml Documented by: Furosemide [Lasix] 1 - 2 tab PO DAILY 04/15/20 Losartan [Cozaar] 50 mg PO DAILY 04/15/20 Magnesium Carb,Citrate,Oxide [Magnesium Complex] 400 mg PO DAILY 04/15/20 Mirabegron [Myrbetriq] 50 mg PO DAILY 04/15/20 [place]-3/Dha/Epa/Fish Oil [[place] 3 500 Softgel] 2 cap PO DAILY 04/15/20 Omeprazole Magnesium 1 tab PO BID 04/15/20 Potassium Chloride 1 tab PO DAILY 04/15/20 metFORMIN [Glucophage] 1,000 mg PO BID 04/15/20 Cholecalciferol [Vitamin D3] 25 mcg PO DAILY 12/27/20 Duloxetine HCl [Cymbalta] 60 mg PO DAILY 12/27/20 Lactobacillus Acidophilus [Acidophilus Lactobacilli] 1 cap PO DAILY 12/27/20 Melatonin 10 mg PO QPM 12/27/20 Multivitamin 1 tab PO DAILY 12/27/20 Oxycodone HCl 10 - 30 mg PO BID PRN 12/27/20 Ubidecarenone [Co Q-10] 1 cap PO DAILY 12/27/20 Vitamin A 1 cap PO DAILY 12/27/20 Vitamin B Complex 1 tab PO DAILY 12/27/20 Objective - Vital Signs/Intake & Output Reviewed Vital Signs: Yes Vital Signs: Vital Signs x48h Temp Pulse Resp BP BP Pulse Ox 12/31/20 11:12 57 L 149/68 H 12/31/20 07:56 36.5 C 62 20 159/58 H 97 Intake & Output: Intake & Output 12/28/20 12/29/20 12/30/20 12/31/20 23:59 23:59 23:59 23:59 Intake Total 1805 3230.00 3233.750 1900 Output Total 500 1700 2050 1600 Balance 1305 1530.00 1183.750 300 - Objective General Appearance: positive: No acute distress, Alert, Other (Morbidly obese, pleasant white female who looks stated age. Almost clean shaven scalp.) Eyes Bilateral: positive: PERRL, EOMI ENT: positive: No signs of dehydration Neck: positive: No JVD. negative: Stiff neck Respiratory: positive: No respiratory distress, Other (Diminished breath sounds at the bases). negative: Wheezes, Rales, Rhonchi Cardiovascular: positive: Regular rate & rhythm. negative: Gallop/S4, Friction rub Abdomen: positive: Non-tender, No organomegaly, Nml bowel sounds, No distention, Other (Large ventral hernia, easily reducible. Tender when you do that.) Skin: positive: Warm, Dry Extremities: positive: Pedal edema Neurologic/Psychiatric: positive: Oriented x3, CN's nml (2-12), Motor nml, Sensation nml - Lab Results Fish Bones: 12/31/20 05:50 12/31/20 05:50 Other Labs: Lab Results x24hrs 12/31/20 12/31/20 12/31/20 Range/Units 11:02 05:50 05:50 WBC 6.7 (4.8-10.8) x10^3/uL RBC 4.38 (4.20-5.40) 10^6/uL Hgb 12.5 (12.0-16.0) g/dL Hct 38.4 (37.0-47.0) % MCV 87.7 (81.0-99.0) fL MCH 28.5 (27.0-31.0) pg MCHC 32.6 (32.0-36.0) g/dL RDW 13.4 (12.0-15.0) % Plt Count 175 (130-450) 10^3/uL MPV 10.0 (7.9-10.8) fL Neut # (Auto) 3.4 (1.5-6.6) 10^3/uL Lymph # (Auto) 2.3 (1.5-3.5) 10^3/uL Hamilton # (Auto) 0.7 (0.0-1.0) 10^3/uL Eos # (Auto) 0.3 (0.0-0.7) 10^3/uL Baso # (Auto) 0.0 (0.0-0.1) 10^3/uL Absolute Nucleated RBC 0.00 x10^3/uL Nucleated RBC % 0.0 /100WBC Sodium 142 (135-145) mmol/L Potassium 3.4 L (3.5-5.0) mmol/L Chloride 107 (101-111) mmol/L Carbon Dioxide 25 (21-32) mmol/L Anion Gap 10.0 (6-13) BUN 11 (6-20) mg/dL Creatinine 0.7 (0.4-1.0) mg/dL Estimated GFR (MDRD) 83 L (>89) Glucose 78 (70-100) mg/dL POC Whole Bld Glucose 96 (70 - 100) mg/dL Calcium 8.7 (8.5-10.3) mg/dL 12/30/20 12/30/20 Range/Units 23:44 18:35 WBC (4.8-10.8) x10^3/uL RBC (4.20-5.40) 10^6/uL Hgb (12.0-16.0) g/dL Hct (37.0-47.0) % MCV (81.0-99.0) fL MCH (27.0-31.0) pg MCHC (32.0-36.0) g/dL RDW (12.0-15.0) % Plt Count (130-450) 10^3/uL MPV (7.9-10.8) fL Neut # (Auto) (1.5-6.6) 10^3/uL Lymph # (Auto) (1.5-3.5) 10^3/uL Hamilton # (Auto) (0.0-1.0) 10^3/uL Eos # (Auto) (0.0-0.7) 10^3/uL Baso # (Auto) (0.0-0.1) 10^3/uL Absolute Nucleated RBC x10^3/uL Nucleated RBC % /100WBC Sodium (135-145) mmol/L Potassium (3.5-5.0) mmol/L Chloride (101-111) mmol/L Carbon Dioxide (21-32) mmol/L Anion Gap (6-13) BUN (6-20) mg/dL Creatinine (0.4-1.0) mg/dL Estimated GFR (MDRD) (>89) Glucose (70-100) mg/dL POC Whole Bld Glucose 73 74 (70 - 100) mg/dL Calcium (8.5-10.3) mg/dL Assessment/Plan - Problem List (1) Small bowel obstruction Impression: Patient has had multiple episodes of bowel obstruction. She has a ventral hernia and needs to have surgery in the future. CT scan of the abdomen pelvis showed low to medium bowel obstruction with bowel and ventral hernia. Reduction was attempted by the ED physician She sees Dr. Joanne Sullivan a surgeon at [facility]. The requirement is for her to lose more weight before surgery can be done. PICC line placed December 28 due to lack of IV access. In the afternoon on December 30 she had a large bowel movement. CT of the abdomen was done and shows resolution of bowel obstruction. Much less pain. Much less nausea. Plan: Clear liquids today Advance to regular diet tomorrow (2) Ventral hernia Conclusion/Plan: She sees Dr. Joanne Sullivan a surgeon at [facility]. She will undergo surgery in the future once she has lost sufficient weight. She is to weigh 500 pounds and currently weighs 350 pounds. No change. 12/30 (3) Morbidly obese Conclusion/Plan: Patient working on losing weight. She used to weigh 500 pounds and is down to 350 pounds currently. No change 12/30 (4) Diabetes mellitus Conclusion/Plan: Yesterday glucose was 85, 104, 93, 74. Today she has been 83 and 96. She is on sliding scale insulin. Plan: No change at this time Qualifiers: Diabetes mellitus type: type 2 (5) Hypertension Conclusion/Plan: Hydralazine 10 mg IV every 6 hours as needed for systolic blood pressure greater than 160. Stable. No change 12/30 (6) GERD (gastroesophageal reflux disease) Conclusion/Plan: Protonix 40 mg IV daily ordered. Will now change to po today. (7) NGHIA (obstructive sleep apnea) Conclusion/Plan: Patient is waiting for her CPAP to be delivered. No change. 12/30
[2020-12-31] MEDS: BENZOCAINE/MENTHOL LOZENGE MM PRN ×2 (15:24→23:55)
[2020-12-31] MEDS ORDERED: oxyCODONE 5 MG TABLET PO PRN (21:14)
[2020-12-31] MEDS: oxyCODONE 5 MG TABLET PO PRN (22:18)
[2020-12-31] MEDS ORDERED: BENZOCAINE/MENTHOL LOZENGE MM PRN (23:47)
[2021-01-01] MEDS: SODIUM CHLORIDE 0.9% 1,000 ML IV SCH ×3 (00:53→19:12)
[2021-01-01] MEDS: INSULIN REGULAR HUMAN 300 UNIT/3 ML VIAL SUBQ SCH ×2 (01:42→06:31)
[2021-01-01] MEDS: PANTOPRAZOLE 40 MG VIAL IVP SCH (05:42)
[2021-01-01 06:22] LABS: BASOPHILS % (AUTO) 0.6 %; EOSINOPHILS # (AUTO) 0.4 10^3/uL (0.0-0.7); EOSINOPHILS % (AUTO) 6.2 %; HCT - HEMATOCRIT 37.5 % (37.0-47.0); HGB - HEMOGLOBIN 12.3 g/dL (12.0-16.0); LYMPHOCYTES # (AUTO) 2.6 10^3/uL (1.5-3.5); LYMPHOCYTES % (AUTO) 37.4 %; MEAN CORPUSCULAR HEMOGLOBIN 28.4 pg (27.0-31.0); MEAN CORPUSCULAR HGB CONC 32.8 g/dL (32.0-36.0); MEAN CORPUSCULAR VOLUME 86.6 fL (81.0-99.0); MEAN PLATELET VOLUME 10.1 fL (7.9-10.8); MONOCYTES # (AUTO) 0.7 10^3/uL (0.0-1.0); MONOCYTES % (AUTO) 10.5 %; NEUTROPHILS # (AUTO) 3.1 10^3/uL (1.5-6.6); PLT - PLATELET COUNT 189 10^3/uL (130-450); RED BLOOD COUNT 4.33 10^6/uL (4.20-5.40); RED CELL DISTRIBUTION WIDTH 13.4 % (12.0-15.0)
[2021-01-01 06:30] LABS: CALCIUM 8.5 mg/dL (8.5-10.3); CREATININE 0.7 mg/dL (0.4-1.0)
[2021-01-01] MEDS: SODIUM CHLORIDE FLUSH 0.9% 10 ML SYRINGE IVP SCH ×2 (07:58→19:12)
[2021-01-01] MEDS: HEPARIN 5,000 UNIT/ML VIAL SUBQ SCH ×2 (07:58→20:53)
[2021-01-01] MEDS: INSULIN ASPART 300 UNIT/3 ML PEN SUBQ SCH ×3 (11:47→20:57)
[2021-01-01] MEDS: BENZOCAINE/MENTHOL LOZENGE MM PRN ×2 (14:49→20:55)
--- NOTE | 2021-01-01 20:38 | PROVIDER PROGRESS NOTE ---
Progress Note January 01, 2021 11 AM She has been tolerating her clear liquids. She is asking if she could have a regular soft diet for dinner tonight. Having BM. Still with a little bit of nausea. Tenderness at her reduced ventral hernia. Temperature is 36.8. Pulse is 57. Blood pressure 149/68. Respirations are 18. 99% on room air. Morbidly obese female who is able to ambulate to a chair in the room, to the bathroom. Get back in that bed. Diminished breath sounds at the bases. But no increased respiratory effort. Regular rate and rhythm. The abdomen is a huge, huge pannus with a large ventral hernia that is tender but reducible. No redness no heat. Legs are large, some pedal edema wrapped in Saad wrap. Potassium is 3 today. Glucose is 112 and 151 so far. White cell count is normal as is CBC. Abdomen pelvis CT from yesterday has nodular groundglass opacities within the right middle lobe. Large ventral hernia with bowel loops again identified in the hernia. The dilated small bowel loops are resolved. Assessment/plan Small bowel obstruction that has resolved. Advance her diet. Hopefully can be discharged tomorrow. Large ventral hernia. To get surgery at [facility] when she is lost enough weight. She will see them in follow-up after this admission. Diabetes mellitus that is well controlled. No change in insulin today. Blood pressure is stable. Little on the high side in the 140s and 150s. Usual home meds have not been resumed yet. We will resume them now that she is taking p.o.
[2021-01-01] MEDS: LOSARTAN 50 MG TABLET PO SCH (20:54)
[2021-01-01] MEDS ORDERED: POTASSIUM CHLORIDE 20 MEQ TABLET PO ONE (21:43)
[2021-01-01] MEDS: POTASSIUM CHLOR 10 MEQ/100 ML 10 MEQ/100 ML BAG IV SCH ×2 (22:28→23:25)
[2021-01-01] MEDS: oxyCODONE 5 MG TABLET PO PRN (22:42)
[2021-01-02] MEDS: POTASSIUM CHLOR 10 MEQ/100 ML 10 MEQ/100 ML BAG IV SCH ×2 (00:29→01:30)
[2021-01-02] MEDS: ACETAMINOPHEN 325 MG TABLET PO PRN ×2 (00:32→09:02)
[2021-01-02] MEDS: SODIUM CHLORIDE FLUSH 0.9% 10 ML SYRINGE IVP SCH ×2 (01:08→09:03)
[2021-01-02] MEDS: PANTOPRAZOLE 40 MG VIAL IVP SCH (05:37)
[2021-01-02 08:57] VITALS: BP 148/51
[2021-01-02] MEDS ORDERED: CHOLECALCIFEROL 25 MCG TABLET PO SCH (09:00)
[2021-01-02] MEDS ORDERED: DULoxetine 30 MG CAPSULE PO SCH (09:00)
[2021-01-02] MEDS: HEPARIN 5,000 UNIT/ML VIAL SUBQ SCH (09:01)
[2021-01-02] MEDS: INSULIN ASPART 300 UNIT/3 ML PEN SUBQ SCH ×2 (09:01→12:07)
[2021-01-02] MEDS: LOSARTAN 50 MG TABLET PO SCH (09:02)
[2021-01-02 09:53] LABS: CREATININE 0.7 mg/dL (0.4-1.0); POTASSIUM 3.5 mmol/L (3.5-5.0)
--- NOTE | 2021-01-02 10:32 | Discharge Plan ---
Discharge Plan Problem Reviewed?: Yes Disposition: Home, Self Care Condition: Fair Diet: Regular (low fiber) Activity Restrictions: Activity as Tolerated Shower Restrictions: No Driving Restrictions: No Health Concerns: Is a recurrent small bowel obstruction. Unfortunately you have had many episodes of these before. You are in the process of working with the [facility] surgeon. You are losing weight in order to undergo surgery. You were kept nothing by mouth. Then advanced to a clear liquid diet when she had a bowel movement. You are now tolerating a low fiber diet. You still have a little bit of tenderness around the ventral hernia. Plan of Treatment: Lose enough weight to have surgery with the [facility] surgeon Care Goals: As above. Assessment: A motivated to follow through and to get the surgery done No Smoking: If you smoke, Please STOP! Call for help.
--- NOTE | 2021-01-02 17:28 | DISCHARGE SUMMARY ---
"Discharge Summary Admit Date: 12/27/20 Discharge Date: 01/02/21 Discharging Provider: Mariel Levine MD Primary Care Provider: Magalie Martinez MD Medicine [phone] Condition at Discharge: Fair Discharge Disposition: 01 Home, Self Care - DIAGNOSES Discharge Diagnoses with Status of Each Condition: 1. Small bowel obstruction 2. Partially incarcerated ventral hernia 3. Super obesity 4. Type 2 diabetes mellitus, controlled, without complication, without long- term use of insulin 5. Hypertension 6. Gastroesophageal reflux disease 7. Obstructive sleep apnea - HPI History of Present Illness: Patient is a 70-year-old morbidly obese female who presented to the ED with complaint of abdominal pain which started around 5 PM yesterday 12/26/2020. She has significant ventral hernia and as a result has had multiple episodes of bow el obstruction. She sees a surgeon by name Joanne Sullivan at [facility]. There is plan for surgery in the future on the condition that she loses some weight. She is currently about 350 pounds and was up to 500 pounds in the past. At bedside she rates her pain 7 out of 10. She complains of nausea and dry heaves as well. She denies chest pain, difficulty in breathing, chills or fever. Work-up in the ED included a CT of the abdomen pelvis which showed the ventral hernia and low to medium grade bowel obstruction. She is being admitted for further treatment to include NG tube placement, pain management. - Past Medical History Cardiovascular: reports: Hypertension Respiratory: reports: Sleep apnea GI: reports: GERD, Other (Ventral hernia, SBO) HIV CTS SPECIALIST: reports: Other (endometrial cancer) Musculoskeletal: reports: Osteoarthritis, Other (Arthritis) Other Past Medical History: Obesity, ventral hernia, Hx of uterine cancer, - Past Surgical History General: reports: Colonoscopy Ortho: reports: Shoulder arthroplasty (right) /HIV CTS SPECIALIST: reports: Hysterectomy HEENT: reports: Tonsil/Adenoidectomy Other past surgical history: mastoid surgery, ear surgery during childhood, abdominal abscess with gangrene drained in February 2020 - CONSULTS | PROCEDURES Procedures: 1. Abdomen pelvis CT with low to moderate grade small bowel obstruction associated with a large ventral hernia containing a long segment of the mid to distal small bowel. A repeat CT was done on December 31 which showed interval improvement of the previously noted small bowel obstruction without dilation of the small bowel. Large ventral hernia containing multiple loops of small bowel remain. 2. Multiple KUBs, plain films done to demonstrate NG tube placement 3. Chest x-ray without acute cardiopulmonary abnormality - HOSPITAL COURSE Hospital Course: Patient was placed on NG suction. It was very uncomfortable for her. She was more miserable from the NG suction than she was from her bowel obstruction. Sequential serial exams showed her abdomen to be tender mainly in the area of her ventral hernia and the partially incarcerated small bowel. She had a very large bowel movement 1 day and was able to start passing gas, and we started her on clear liquids. She was very excited about that and was thinking that she might be able to go home that afternoon but by late morning was miserable again and we held off on advancing diet. She was on clear liquids for close to 2-1/2 days only then started regular low fiber diet. She tolerated dinner and her breakfast with low fiber diet and was anxious to go home. She wants us to make sure that her medicine physician, Magalie Martinez, gets a copy of this history physical. As well as her surgeon Joanne Sullivan. Throughout her stay she did not develop a white cell count. There is no anemia. BUN and creatinine remain normal. Glucose was controlled with Lantus and sliding scale insulin. Hypertension was initially controlled with IV medication since she was n.p.o. and then she was transitioned to her usual medications by mouth. She was on a proton pump inhibitor. During her stay she did not use a sleep mask for obstructive sleep apnea but has a follow-up appointment with her physician at the sleep lab this coming week. Plan is for her to lose enough weight to undergo an elective ventral hernia surgery repair. I did explain to her that if she were ever to come here with a bowel obstruction, our surgeons would not be able to operate on her and she would have to be transferred. Temperature was 36.3. Pulse 64. Blood pressure 148/51. Respirations 16. 98% on room air. She is 5 feet 9 inches tall and weighs 149.68 kg. Generalized alopecia with closely cut crewcut hair. No acute distress. Very happy to be leaving. Neck is short, felix, unable to assess for JVD. Diminished breath sounds at the bases but clear without any increased respiratory effort. Abdomen is hugely obese with a large pannus. Central area is that of a large, large ventral hernia. It is reducible but tender to touch. Normal bowel sounds. The abdominal wall is soft, not rigid. Extremities are large, with trace edema. She is able to ambulate on her own. Greater than 30 minutes was spent coordinating discharge. - ALLERGIES Allergies/Adverse Reactions: Allergies Allergy/AdvReac Type Severity Reaction Status Date / Time Penicillins Allergy Unknown Rash Verified 12/26/20 22:25 penicillin G Allergy Rash Verified 12/26/20 22:25 gabapentin AdvReac Mild Unknown Verified 12/26/20 22:25 - MEDICATIONS Home Medications: Ambulatory Orders Medication Instructions Recorded Confirmed Furosemide [Lasix] 1 - 2 tab PO DAILY 04/15/20 12/27/20 Losartan [Cozaar] 50 mg PO DAILY 04/15/20 12/27/20 Magnesium Carb,Citrate,Oxide 400 mg PO DAILY 04/15/20 12/27/20 [Magnesium Complex] Mirabegron [Myrbetriq] 50 mg PO DAILY 04/15/20 12/27/20 [place]-3/Dha/Epa/Fish Oil [[place] 3 2 cap PO DAILY 04/15/20 12/27/20 500 Softgel] Omeprazole Magnesium 1 tab PO BID 04/15/20 12/27/20 Potassium Chloride 1 tab PO DAILY 04/15/20 12/27/20 metFORMIN [Glucophage] 1,000 mg PO BID 04/15/20 12/27/20 Cholecalciferol [Vitamin D3] 25 mcg PO DAILY 12/27/20 12/27/20 Duloxetine HCl [Cymbalta] 60 mg PO DAILY 12/27/20 12/27/20 Lactobacillus Acidophilus 1 cap PO DAILY 12/27/20 12/27/20 [Acidophilus Lactobacilli] Melatonin 10 mg PO QPM 12/27/20 12/27/20 Multivitamin 1 tab PO DAILY 12/27/20 12/27/20 Oxycodone HCl 10 - 30 mg PO BID PRN 12/27/20 12/27/20 Ubidecarenone [Co Q-10] 1 cap PO DAILY 12/27/20 12/27/20 Vitamin A 1 cap PO DAILY 12/27/20 12/27/20 Vitamin B Complex 1 tab PO DAILY 12/27/20 12/27/20 - LABS Result Diagrams: 01/01/21 05:50 01/02/21 09:15"
== END 2021-01-02 13:40 | disposition home or self-care (01) | DRG 394 ==
LOC: ED 22:09 → MS2 12-27 06:50
PROVIDERS: ADMIT Internal Medicine; ATTEND Specialist
PROC: 02HV33Z Insertion of Infusion Device into Superior Vena Cava, Percutaneous Approach (ICD-10-PCS; principal; 2020-12-28)
DX: K43.6 Other and unspecified ventral hernia with obstruction, without gangrene (principal); Z68.42 Body mass index [BMI] 45.0-49.9, adult; G47.30 Sleep apnea, unspecified; Z20.822 Contact with and (suspected) exposure to COVID-19; E66.01 Morbid (severe) obesity due to excess calories; E11.9 Type 2 diabetes mellitus without complications; Z79.4 Long term (current) use of insulin; I10 Essential (primary) hypertension; K21.9 Gastro-esophageal reflux disease without esophagitis; G47.33 Obstructive sleep apnea (adult) (pediatric)
CPT/HCPCS: 36415; 71045; 74018; 74176; 74177; 80048; 80053; 81001; 83605; 83690; 85025; 87077; 87086; 87181; 87631; 96374; 96375; 96376; 99284; 99285; A9270; C1751; J0131; J1170; J1815; Q9967; 0202U; 81003

== ENCOUNTER 2021-12-04 13:26 | Outpatient (CLI) | payer MEDICARE, MEDICAID ==
[2021-12-04 17:30] VITALS: BP 188/80
--- NOTE | 2021-12-04 17:30 | SLEEP CARE CONSULTATION ---
Information from patient questionnaire entered by Vinod Ceja. I have reviewed and concur with the information entered by Vinod Ceja. This document represents the service I personally performed and the decisions made by me, Sobia Greenfield MD, [facility]. History of Present Illness Service Date and Time: 12/04/2021 1326 Reason for follow up: other (11 MONTH F/U, LAST SEEN 01/05) Prior sleep studies: Yes Year and Where: [facility] in [place], [place] HPI additional information: Ms. Cruz returned today for follow up of nasal CPAP therapy. She was diagnosed to have moderate obstructive sleep apnea-hypopnea syndrome. The patient went to [facility] for the equipment. She reports using the device nightly and all through the night. The compliance report shows usage in 179 nights out of the past 180 nights, averaging 4.2 hours a night. The > 4 hour compliance rate for the past 180 days is 57%. She complained of no particular problem with the device such as soreness on the face, dry nose, epistaxis, nasal congestion or headache. She thinks that the pressure of 5 - 10 cmH2O is comfortable. She does not notice much improvement on the treatment. The Nelson Sleepiness Scale score 5. The average residual AHI is 1.9: and air leak, 3.3 L/min. The 90th percentile pressure is 9 cmH2O. Sleep Study - Results Prior sleep studies: Yes Year and Where: [facility] in [place], [place] Subjective Initial Nelson Sleepiness Scale score: 13 (in 2020) Current Nelson Sleepiness Scale score: 5 (12/04/21) Allergies and Home Medications Drug allergies reviewed: Yes Home medication list reviewed: Yes Allergy and home medication list: Allergies Penicillins Allergy (Unknown, Verified 12/26/20 22:25) Rash penicillin G Allergy (Verified 12/26/20 22:25) Rash gabapentin Adverse Reaction (Mild, Verified 12/26/20 22:25) Unknown Review of Systems Review of systems same as previous: Yes Physical Exam Vital signs obtained and entered by: JACINDA FULTON Blood Pressure: 188/80 (right wrist ) Cuff size: wrist Heart Rate: 92 O2 Saturation: 97 Height: 5 ft 9 in Weight: 384 lb Body Mass Index: 56.7 BMI Classification: Morbidly Obese Impression and Plan IMPRESSION: 1. Obstructive Sleep Apnea-Hypopnea Syndrome, moderate, with the patient doing well on nasal CPAP therapy. She has decent compliance and some clinical improvement. The current pressure appears effective and comfortable. Overall, she is very satisfied with treatment and plans to continue with it long-term. No adjustment is necessary today. PLAN: 1. Continue with autoCPAP set at 5 - 10 cmH2O. Use the device more. 2. Try to lose weight 3. Return in one year for follow up or earlier if there is any problem with the treatment. Follow up with Sleep Care in: 1 year Visit Type: In Office Time Spent with Patient (minutes): 15 Provider Statement: I spent 100% of the Face to Face Visit with the patient with greater than 50% spent counseling the patient and coordination of care.
== END 2021-12-04 13:27 | disposition home or self-care (01) ==
LOC: SC 13:26
PROVIDERS: ATTEND Internal Medicine Pulmonary Disease
DX: G47.33 Obstructive sleep apnea (adult) (pediatric) (principal); Z68.43 Body mass index [BMI] 50.0-59.9, adult; E66.01 Morbid (severe) obesity due to excess calories
CPT/HCPCS: 99212; G0463

== ENCOUNTER 2022-02-03 17:43 | Outpatient (CLI) | payer MEDICARE | END 2022-02-03 23:59 | disposition EMS.NT | LOC: EMS 17:43 | DX: Z03.89 Encounter for observation for other suspected diseases and conditions ruled out (principal) ==

== ENCOUNTER 2022-05-30 07:30 | Outpatient (CLI) | payer MEDICARE ==
[2022-05-30 16:15] LABS: ALBUMIN 3.8 g/dL (3.2-5.5); ALBUMIN/GLOBULIN RATIO 1.2 (1.0-2.2); BILIRUBIN,TOTAL 0.8 mg/dL (0.2-1.0); CALCIUM 9.1 mg/dL (8.5-10.3); CREATININE 0.9 mg/dL (0.4-1.0); POTASSIUM 4.3 mmol/L (3.5-5.0); TOTAL PROTEIN 7.1 g/dL (6.7-8.2)
[2022-05-30 20:45] LABS: ESTIMATED AVERAGE GLUCOSE 148 mg/dL (70-100); HEMOGLOBIN A1c% 6.8 % (4.27-6.07)
== END 2022-05-30 07:31 | disposition home or self-care (01) ==
LOC: LAB.S 07:30
PROVIDERS: ATTEND Internal Medicine
DX: E11.9 Type 2 diabetes mellitus without complications (principal); Z98.84 Bariatric surgery status
CPT/HCPCS: 36415; 80053; 81599; 82043; 83036

== ENCOUNTER 2022-07-25 12:41 | Outpatient (CLI) | payer MEDICARE ==
--- NOTE | 2022-08-01 12:46 | Mammography Report ---
BILATERAL DIGITAL SCREENING MAMMOGRAM 3D/2D: 07/25/2022 CLINICAL: Routine screening. Family history of breast cancer. No prior exams were available for comparison. There are scattered areas of fibroglandular density in both breasts (category b / 25%-50% glandular t issue). No significant masses, calcifications, or other findings are seen in either breast. IMPRESSION: NEGATIVE There is no mammographic evidence of malignancy. A 1 year screening mammogram is recommended. Based on the Tyrer Cuzick model (a risk assessment model) the patients lifetime risk is 5.0% and her 10 year risk is 2.9%. According to the ACR, ACS, and NCCN guidelines, an annual breast MRI exam anastasia g with mammogram is recommended if the patients lifetime risk is 20% or greater. This exam was interpreted at Station ID: [id number]. NOTE: For mammograms, a report in lay terms will be sent to the patient. Approximately 15% of breast malignancies will not be visualized mammographically. In the management of a palpable breast mass, a negative mammogram must not discourage biopsy of a clinically suspicious lesion. Electronically Signed By: Keenan Galan M.D. [facility]:08/01/2022 10:13:44 letter sent: No_Letter ACR BI-RADS Category 1: Negative 3341F PARENCHYMAL PATTERN: (A) - The breast(s) demonstrate(s) scattered fibroglandular densities. BI-RADS CATEGORY: (1) - 1 Mammogram [id number] 1 year screening LATERALITY: (B)
== END 2022-07-25 12:42 | disposition home or self-care (01) ==
LOC: DI.S 12:41
PROVIDERS: ATTEND Internal Medicine
DX: Z12.31 Encounter for screening mammogram for malignant neoplasm of breast (principal); Z80.3 Family history of malignant neoplasm of breast

== ENCOUNTER 2023-03-20 17:06 | Outpatient (CLI) | payer MEDICARE ==
--- NOTE | 2023-03-20 19:01 | XRAY Report ---
PROCEDURE: Shoulder 2+V LT INDICATIONS: SPRAIN OF LEFT SHOULDER JOINT TECHNIQUE: 3 views of the shoulder were acquired. COMPARISON: None. FINDINGS: Bones: No acute fractures or dislocations. No suspicious bony lesions. Visualized ribs appear inta ct. Moderate degenerative disc narrowing seen in the glenohumeral joint with small marginal osteoph ytes. Moderate acromial clavicular osteoporosis. Soft tissues: No suspicious soft tissue calcifications. The visualized lungs are within normal limi ts. IMPRESSION: Moderate glenohumeral and acromial clavicular osteoarthrosis. No acute osseous abnormality identified . Reviewed by: Frederick Vega MD on 03/20/2023 7:00 PM PST Approved by: Frederick Vega MD on 03/20/2023 7:00 PM PST Station ID: [id number]
--- NOTE | 2023-03-20 19:02 | XRAY Report ---
PROCEDURE: Wrist 3 View LT INDICATIONS: STRAIN OF LEFT WRIST TECHNIQUE: 3 views of the wrist were acquired. COMPARISON: None. FINDINGS: Bones: No acute fractures or dislocations. No suspicious bony lesions. Mild negative ulnar varian ce. Soft tissues: No suspicious soft tissue calcifications or masses. IMPRESSION: No acute osseous abnormality. If there is clinical concern or persistent symptoms, additional imaging such as repeat radiographs or advanced imaging (e.g. CT, MRI) may be helpful for further evaluation. Reviewed by: Frederick Vega MD on 03/20/2023 7:01 PM [facility] Approved by: Frederick Vega MD on 03/20/2023 7:01 PM [facility] Station ID: [id number]
--- NOTE | 2023-03-20 19:04 | XRAY Report ---
PROCEDURE: Finger(s) LT INDICATIONS: STRAIN OF LEFT THUMB TECHNIQUE: PA hand, 2 views of the thumb acquired. COMPARISON: None. FINDINGS: Bones: No acute fractures or dislocations. No suspicious bony lesions. Mild to moderate osteoarth rosis. Soft tissues: No suspicious soft tissue calcifications. IMPRESSION: Mild to moderate osteoarthrosis. No acute osseous abnormality. If there is clinical concern or persis tent symptoms, additional imaging such as repeat radiographs or advanced imaging (e.g. CT, MRI) may b e helpful for further evaluation. Reviewed by: Frederick Vega MD on 03/20/2023 7:03 PM PST Approved by: Frederick Vega MD on 03/20/2023 7:03 PM PST Station ID: [id number]
== END 2023-03-20 17:07 | disposition home or self-care (01) ==
LOC: DI.S 17:06
PROVIDERS: ATTEND Physician Assistant Medical
DX: S43.492A Other sprain of left shoulder joint, initial encounter (principal); S66.212A Strain of extensor muscle, fascia and tendon of left thumb at wrist and hand level, initial encounter; M18.12 Unilateral primary osteoarthritis of first carpometacarpal joint, left hand; M19.012 Primary osteoarthritis, left shoulder

== ENCOUNTER 2023-04-30 09:46 | Outpatient (CLI) | payer MEDICARE ==
--- NOTE | 2023-04-30 14:26 | XRAY Report ---
PROCEDURE: Wrist 3 View LT INDICATIONS: LEFT WRIST PAIN TECHNIQUE: 3 views of the wrist were acquired. COMPARISON: left wrist radiographs 03/20/2023. FINDINGS: Bones: No acute fractures or dislocations. No suspicious bony lesions. Mild to moderate degenerat tania changes at the first carpometacarpal joint and to a lesser extent the triscaphe and radiocarpal j oints. Mild negative ulnar variance. Soft tissues: No suspicious soft tissue calcifications. IMPRESSION: Mild to moderate osteoarthrosis, most notably at the first carpometacarpal joint. Reviewed by: Frederick Vega MD on 04/30/2023 2:25 PM PST Approved by: Frederick Vega MD on 04/30/2023 2:25 PM PST Station ID: [id number]
--- NOTE | 2023-04-30 14:30 | XRAY Report ---
PROCEDURE: Forearm LT INDICATIONS: LEFT MID FOREARM PAIN TECHNIQUE: 2 views of the forearm were acquired. COMPARISON: Left wrist radiographs 03/20/2023. FINDINGS: Bones: No acute fractures or dislocations. No suspicious bony lesions. Mild negative ulnar appeara nce. Soft tissues: No suspicious soft tissue calcifications. IMPRESSION: No acute osseous abnormality. If symptoms persist or there is continued clinical concern, further jen luation with MRI or CT may be helpful. Reviewed by: Frederick Vega MD on 04/30/2023 2:28 PM PST Approved by: Frederick Vega MD on 04/30/2023 2:28 PM PST Station ID: [id number]
--- NOTE | 2023-04-30 17:52 | XRAY Report ---
PROCEDURE: Elbow 3 View LT INDICATIONS: LEFT ELBOW PAIN TECHNIQUE: 3 views of the elbow were acquired. COMPARISON: None. FINDINGS: Bones: No fractures or dislocations. Small dorsal olecranon enthesophyte at distal triceps tendon in sertion is seen. No suspicious bony lesions. Soft tissues: No effusion. Curvilinear calcification adjacent to medial humeral condyle is seen. IMPRESSION: No acute elbow fracture or dislocation. No significant joint effusion. Enthesophyte formation involving proximal olecranon near triceps tendon insertion. Curvilinear calcif ication adjacent to medial humeral condyle suggestive of calcific tendinitis involving common flexor tendon origin. Reviewed by: Obinna Grove MD on 04/30/2023 5:51 PM PST Approved by: Obinna Grove MD on 04/30/2023 5:51 PM PST Station ID: [id number]
== END 2023-04-30 23:59 | disposition home or self-care (01) ==
LOC: DI.WOS 09:46
PROVIDERS: ATTEND Physician Assistant Surgical
DX: M19.032 Primary osteoarthritis, left wrist (principal); M18.12 Unilateral primary osteoarthritis of first carpometacarpal joint, left hand; M77.8 Other enthesopathies, not elsewhere classified

== ENCOUNTER 2023-08-28 08:00 | Outpatient (CLI) | payer MEDICARE | END 2023-08-28 23:59 | disposition home or self-care (01) | LOC: LAB.S 08:00 | PROVIDERS: ATTEND Internal Medicine | DX: L08.9 Local infection of the skin and subcutaneous tissue, unspecified (principal) | CPT/HCPCS: 87070; 87181; 87205 ==